=== PATIENT | female | born 1980 | race Caucasian/White ===

== ENCOUNTER 2021-07-16 08:14 | Outpatient (REF) | payer BC, SELFPAY ==
--- NOTE | ~2021-07-16 | MM_ITS ---
EXAMINATION: MM SCREENING DIGITAL BREAST TOMOSYNTHESIS, BILATERAL CLINICAL INFORMATION: Screening. Asymptomatic. The lifetime risk of breast cancer based on the Tyrer-Cuzick Model is 11.4%. COMPARISON: Mammography: July 12, 2020 and studies dating back to January 20, 2019 TECHNIQUE: Digital breast tomosynthesis is performed in both the craniocaudal and mediolateral oblique views along with computer-aided detection (CAD). Synthesized 2D images are generated from the tomosynthesis. FINDINGS: There are scattered areas of fibroglandular density (ACR BI-RADS breast composition Category b). There are no significant masses, abnormal calcifications, or other abnormalities. MM/MM tomosynthesis screening BI IMPRESSION: There are no significant changes from prior study. ASSESSMENT: BI-RADS 1: Negative RECOMMENDATION: Routine annual mammography screening. This patient's information was entered into a reminder system with a target due date for their next mammogram.
== END 2021-07-16 08:15 | disposition home or self-care (01) ==
LOC: HO.MAMMO 08:14
PROVIDERS: PCP Nurse Practitioner Family; Visit Provider Nurse Practitioner Family
DX: Z12.31 Encounter for screening mammogram for malignant neoplasm of breast (principal)
CPT/HCPCS: 77063; 77067

== ENCOUNTER 2022-03-08 09:04 | Outpatient (REF) | payer BC, SELFPAY ==
[2022-03-08 09:30] LABS: MANUAL DIFF FLAG NO
[2022-03-08 09:38] LABS: Basophils Percent Auto 0.3 % (0-2); Eosinophils Absolute Auto 0.1 X10*3/uL (0.0-0.4); Eosinophils Percent Auto 2.3 % (0-4); Hematocrit 38.1 % (37.0-47.0); Hemoglobin 13.1 g/dl (12.0-16.0); Imm Gran Abs Auto 0.01 X10*3/uL (0.00-0.03); Imm Gran Pct Auto 0.2 % (0.0-0.4); Lymphocytes Absolute Auto 2.7 X10*3/uL (1.2-4.9); Lymphocytes Percent Auto 44.1 % (20-40); Mean Corpuscular HGB Conc 34.4 g/dl (31.0-35.0); Mean Corpuscular Hemoglobin 29.8 pg (27.0-33.0); Mean Corpuscular Volume 86.8 fL (80.0-98.0); Mean Platelet Volume 10.5 fL (9.4-12.3); Monocytes Absolute Auto 0.4 X10*3/uL (0.1-1.2); Monocytes Percent Auto 7.1 % (2-11); Neutrophils Absolute Auto 2.8 x10*3/uL (2.0-8.3); Platelet Count 240 X10*3/uL (160-400); Red Blood Count 4.39 X10*6/uL (4.20-5.50); Red Cell Distribution Width 12.1 % (11.0-16.0); White Blood Count 6.2 X10*3/uL (4.8-10.8)
[2022-03-08 10:02] LABS: Alanine Aminotransferase 22 U/L (0-31); Albumin Level 4.3 g/dL (3.5-5.0); Alkaline Phosphatase 64 U/L (39-117); Anion Gap 12 (12-20); Aspartate Amino Transferase 14 U/L (5-31); Blood Urea Nitrogen 15 mg/dL (9-16); Calcium 9.8 mg/dL (8.4-10.2); Carbon Dioxide 27 mmol/L (22-29); Chloride 105 mmol/L (96-108); Cholesterol 178 mg/dL; Estimated Glomerular Filt Rate > 60; Glucose Fasting 117 mg/dL (60-99); HDL Cholesterol 51 mg/dL; LDL Cholesterol Calculated 97 mg/dl; Potassium 4.1 mmol/L (3.3-5.1); Sodium 140 mmol/L (135-145); Total Protein 6.8 g/dL (6.5-8.0); Triglycerides 154 mg/dL
[2022-03-08 10:28] LABS: TSH reflex Free T4 1.64 uIU/mL (0.32-4.0)
[2022-03-08 11:11] LABS: Appearance Urine CLEAR; Color Urine YELLOW; Glucose Urine UA NEG (NEG); Leukocyte Esterase Urine NEG (NEG); Nitrite Urine NEG (NEG); PH 5.5 (5.0-8.0); Specific Gravity - Urine 1.025 (1.005-1.025); Urine Blood NEG (NEG); Urine Ketones NEG (NEG); Urine Protein NEG (NEG-TRACE)
== END 2022-03-08 09:05 | disposition home or self-care (01) ==
LOC: HO.LAB 09:04
PROVIDERS: PCP Nurse Practitioner Family; Visit Provider Nurse Practitioner Family
DX: Z00.00 Encounter for general adult medical examination without abnormal findings (principal)
CPT/HCPCS: 36415; 80053; 80061; 81003; 84443; 85025

== ENCOUNTER 2022-07-18 09:26 | Outpatient (REF) | payer BC, SELFPAY ==
--- NOTE | ~2022-07-18 | MM_ITS ---
EXAMINATION: MM SCREENING DIGITAL BREAST TOMOSYNTHESIS, BILATERAL CLINICAL INFORMATION: Screening. Asymptomatic. The lifetime risk of breast cancer based on the Tyrer-Cuzick Model is 11%. COMPARISON: Mammography: 07/16/2021, 07/12/2020, 01/20/2019 TECHNIQUE: Digital breast tomosynthesis is performed in both the craniocaudal and mediolateral oblique views along with computer-aided detection (CAD). Synthesized 2D images are generated from the tomosynthesis. FINDINGS: There are scattered areas of fibroglandular density (ACR BI-RADS breast composition Category b). Parenchymal pattern is similar to prior studies. There are scattered bilateral stable asymmetries similar to prior exams. No developing density or interval mass or architectural abnormality. No abnormal calcifications. The axilla and skin contours are unremarkable. MM/MM tomosynthesis screening BI IMPRESSION: No mammographic evidence of malignancy. ASSESSMENT: BI-RADS 2: Benign RECOMMENDATION: Routine annual mammography screening. This patient's information was entered into a reminder system with a target due date for their next mammogram.
== END 2022-07-18 09:27 | disposition home or self-care (01) ==
LOC: HO.MAMMO 09:26
PROVIDERS: PCP Nurse Practitioner Family; Visit Provider Nurse Practitioner Family
DX: Z12.31 Encounter for screening mammogram for malignant neoplasm of breast (principal)
CPT/HCPCS: 77063; 77067

== ENCOUNTER 2022-11-06 13:25 | Outpatient (REF) | payer BC, SELFPAY ==
[2022-11-12 16:29] LABS: HPV mRNA E6/E7 rflx Not Detected (Not Detected)
== END 2022-11-06 13:26 | disposition home or self-care (01) ==
LOC: HO.LNP 13:25
PROVIDERS: PCP Nurse Practitioner Family; Visit Provider Advanced Practice Midwife
DX: Z01.419 Encounter for gynecological examination (general) (routine) without abnormal findings (principal); Z11.51 Encounter for screening for human papillomavirus (HPV)
CPT/HCPCS: 87624; 88142

== ENCOUNTER 2022-12-27 11:27 | Outpatient (REF) | payer BC, SELFPAY ==
[2022-12-27 13:59] LABS: MANUAL DIFF FLAG NO
[2022-12-27 14:14] LABS: Appearance Urine Clear; Color Urine Yellow; Glucose Urine UA Negative (Negative); Leukocyte Esterase Urine Negative (Negative); Nitrite Urine Negative (Negative); Specific Gravity - Urine 1.025 (1.005-1.025); Urine Blood Negative (Negative); Urine Ketones Negative (Negative); Urine Protein Negative (Neg-Trace)
[2022-12-27 14:42] LABS: Basophils Percent Auto 0.3 % (0-2); Eosinophils Absolute Auto 0.1 X10*3/uL (0.0-0.4); Eosinophils Percent Auto 1.4 % (0-4); Hematocrit 39.1 % (37.0-47.0); Hemoglobin 13.2 g/dl (12.0-16.0); Imm Gran Abs Auto 0.04 X10*3/uL (0.00-0.03); Imm Gran Pct Auto 0.6 % (0.0-0.4); Lymphocytes Absolute Auto 2.4 X10*3/uL (1.2-4.9); Lymphocytes Percent Auto 35.8 % (20-40); Mean Corpuscular HGB Conc 33.8 g/dl (31.0-35.0); Mean Corpuscular Hemoglobin 30.6 pg (27.0-33.0); Mean Corpuscular Volume 90.5 fL (80.0-98.0); Mean Platelet Volume 11.1 fL (9.4-12.3); Monocytes Absolute Auto 0.4 X10*3/uL (0.1-1.2); Monocytes Percent Auto 5.4 % (2-11); Neutrophils Absolute Auto 3.8 x10*3/uL (2.0-8.3); Neutrophils Percent Auto 56.5 % (45-73); Platelet Count 231 X10*3/uL (160-400); Red Blood Count 4.32 X10*6/uL (4.20-5.50); Red Cell Distribution Width 12.5 % (11.0-16.0); White Blood Count 6.7 X10*3/uL (4.8-10.8)
[2022-12-27 15:10] LABS: Alanine Aminotransferase 24 U/L (0-31); Albumin Level 4.3 g/dL (3.5-5.0); Alkaline Phosphatase 67 U/L (39-117); Anion Gap 13 (12-20); Aspartate Amino Transferase 16 U/L (5-31); Blood Urea Nitrogen 13 mg/dL (9-16); Calcium 9.3 mg/dL (8.4-10.2); Carbon Dioxide 26 mmol/L (22-29); Chloride 105 mmol/L (96-108); Cholesterol 192 mg/dL; Estimated Glomerular Filt Rate > 60; Glucose Fasting 106 mg/dL (60-99); HDL Cholesterol 56 mg/dL; LDL Cholesterol Calculated 112 mg/dl; Potassium 4.4 mmol/L (3.3-5.1); Sodium 140 mmol/L (135-145); Total Protein 6.6 g/dL (6.5-8.0); Triglycerides 122 mg/dL
== END 2022-12-27 11:28 | disposition home or self-care (01) ==
LOC: HO.10HDL 11:27
PROVIDERS: Visit Provider Nurse Practitioner Family
DX: Z00.00 Encounter for general adult medical examination without abnormal findings (principal); Z20.2 Contact with and (suspected) exposure to infections with a predominantly sexual mode of transmission
CPT/HCPCS: 36415; 80053; 80061; 81003; 84443; 85025

== ENCOUNTER 2023-07-15 07:31 | Outpatient (AMB) | payer BC, SELFPAY ==
--- NOTE | 2023-07-15 07:36 | MHC.PC.OV ---
Vital Signs 07/15/23 07:37 Height 5 ft 2 in Weight 250 lb 8 oz BMI 45.8 BP 100/72 Blood Pressure Location Rt brachial Position Sitting Pulse 74 Pulse Source Pulse Oximeter Pulse Oximetry (%) 98 Oxygen Delivery Method Room Air Intake Visit Reasons: Abdominal aortic aneurysm Allergies Sulfa (Sulfonamide Antibiotics) Allergy (Unknown, Verified 07/15/23 08:08) facial edema oxycodone [OXYCODONE] Adverse Reaction (Intermediate, Verified 07/15/23 08:08) VOMITTING Medication List - Last Reconciled 07/15/23 by MIKI Musa atorvastatin 20 mg PO DAILY mupirocin 2% 1 appl topical BID 30 days nicotine 1 patch transdermal Q24H 30 days ropinirole 0.25 mg PO BEDTIME 90 days Tobacco use date assessed: 07/15/23 Dental Screening Dental Screen Date: 07/15/23 Did you have a dental visit in the last 12 months?: Yes Did you have a dental problem in the last 6 months where you did not have access to dental care?: No Was dental information given to patient?: Patient has dentist HPI Abdominal aortic aneurysm HPI Details Pt is here for a PE. Will order labs. 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 Mammo is scheduled. Due for colon screen in the near future, will refer to GI. [facility] Medical History (Updated 07/15/23 @ 07:48 by MIKI Musa) Sleep apnea in adult Sleep apnea CPAP (continuous positive airway pressure) dependence Surgical History Hx of hysterectomy Social History Housing: House Patient Tobacco Use Status: Current everyday Tobacco user Cigarettes Per Day: 5 e-Cigarette/Vaping Use: Never Used Second Hand Smoke Exposure: No service: No Current occupational status: employed Current occupation: [employer] Current occupational exposures/hazards: No Cognitive needs: No Hearing needs: No Vision needs: No Female Reproductive History Menstrual Age of Menarche: 9 Questionnaire Thrive Questionnaire Date Thrive assessed: 06/06/22 GEORGES-7 AMB Questionnaire GEORGES-7 Date GEORGES - 7 assessed: 06/06/22 Source: Developed by Drs. Ang LLis Klein, Dylan Ibarra and colleagues, with an educational yadira from [employer]. Review of Systems Const Denies chills and Denies fever(s) Eyes Denies blurry vision ENT Denies vertigo, Denies dizziness and Denies sore throat Card Denies chest pain at rest, Denies chest pain with activity, Denies diaphoresis, Denies dyspnea and Denies dyspnea on exertion Resp Denies cough, Denies dyspnea, Denies dyspnea on exertion and Denies wheezing GI Denies abdominal pain, Denies melena, Denies hematochezia, Denies constipation, Denies diarrhea and Denies loose stools Denies hematuria Musc Denies numbness and Denies tingling Skin/Breast Denies lesions Neuro Denies vertigo, Denies dizziness, Denies numbness and Denies tingling Psych Denies anxiety, Denies depression, Denies homicidal ideation, Denies suicidal ideation and Denies other (substance abuse) Aller/Immun Denies wheezing Physical exam (Primary Care) Vital Signs: Last Vital Signs Pulse 74 07/15/23 07:37 BP 100/72 07/15/23 07:37 Pulse Ox 98 07/15/23 07:37 Oxygen Delivery Method Room Air 07/15/23 07:37 BMI result Body Mass Index 45.8 Tobacco/Smoking Status: Tobacco use Status Tobacco use date assessed 07/15/23 07/15/23 07:42 Patient Tobacco Use Status Current everyday Tobacco 07/15/23 07:42 e-Cigarette/Vaping Use Never Used 07/15/23 07:42 Thrive Assessment: Date of Thrive Assessment Date Thrive assessed 06/06/22 07/15/23 07:42 Const General: cooperative Nutritional Appearance: obese morbidly obese Orientation/consciousness: patient oriented x3 HENMT Head: Yes normal to inspection, Yes normocephalic and Yes atraumatic Ears: TM's normal bilaterally Eyes General: appearance normal, both eyes and all related structures Alignment and Position: alignment normal and position normal Neck Neck: Yes normal visual inspection and Yes no lymphadenopathy Thyroid: Thyroid normal Resp Effort & Inspection: normal respiratory effort Auscultation: clear to auscultation bilaterally Cardio Rate: regular rate Rhythm: regular rhythm Heart sounds: S1 normal heart sound present, S2 normal heart sound present and no murmurs GI Palpation (GI): Soft to palpation and nontender Auscultation: normal bowel sounds Skin Rashes: no rashes Neuro General: patient oriented x3, moves all extremities, no focal motor deficits and deep tendon reflexes 2+ bilaterally Romberg Test: Negative Psych Appearance: grossly normal Mental Status: mental status grossly normal Speech and movement: Normal speech and movement present Affect: normal affect Attitude: cooperative Thought process: Normal thought process present Thought content: Normal thought content present Insight: Good insight present (Psych) Judgement: Good judgement present (Psych) Assessment and Plan Assessment & Plan (1) Physical exam: Code(s): Z00.00 - Encounter for general adult medical examination without abnormal findings Plan: Labs ordered (2) Screening for colon cancer: Code(s): Z12.11 - Encounter for screening for malignant neoplasm of colon Plan: Referred to GI Plan The patient agreed to the use of a medical radiation tech for this encounter. Scribed for MIKI Spangler by Kati Cha medical radiation tech, on 07/15/2023 at 07:45 EST. Orders: Orders TSH reflex Free T4 Today Z00.00 - Encounter for general adult medical examination without abnormal findings Lipid Panel Today Z00.00 - Encounter for general adult medical examination without abnormal findings Complete Blood Count Auto Diff Today Z00.00 - Encounter for general adult medical examination without abnormal findings Comprehensive Sublette. Panel Fast Today Z00.00 - Encounter for general adult medical examination without abnormal findings UA CC w/rflx Micro + Cult Today Z00.00 - Encounter for general adult medical examination without abnormal findings Referrals Gastroenterology Referral Z12.11 - Encounter for screening for malignant neoplasm of colon Coding Level of Care Code Est Pt Prev Care 40-64y(27310) Diagnoses Physical exam Z00.00 Screening for colon cancer Z12.11
[2023-07-15 07:37] VITALS: BP 100/72; PULSE 74; O2SAT 98; BMI 45.8
== END 2023-07-15 09:06 | disposition home or self-care (01) ==
PROVIDERS: Visit Provider Nurse Practitioner Family
DX: Z00.00 Encounter for general adult medical examination without abnormal findings (principal); Z12.11 Encounter for screening for malignant neoplasm of colon
CPT/HCPCS: 99396

== ENCOUNTER 2023-07-24 09:08 | Outpatient (REF) | payer BC, SELFPAY ==
--- NOTE | ~2023-07-24 | MM_ITS ---
EXAMINATION: MM SCREENING DIGITAL BREAST TOMOSYNTHESIS, BILATERAL CLINICAL INFORMATION: Screening. Asymptomatic. COMPARISON: Mammography: 07/18/2022, 07/16/2021, 07/12/2020, 01/20/2019 TECHNIQUE: Digital breast tomosynthesis is performed in both the craniocaudal and mediolateral oblique views along with computer-aided detection (CAD). Synthesized 2D images are generated from the tomosynthesis. FINDINGS: There are scattered areas of fibroglandular density (ACR BI-RADS breast composition Category b). There are no suspicious masses, suspicious grouped calcifications, or areas of architectural distortion in either breast. The parenchymal pattern is stable from prior exams. There are scattered bilateral stable and completely unchanged asymmetries similar to prior exams. MM/MM tomosynthesis screening BI IMPRESSION: No mammographic evidence of malignancy. Stable benign findings. ASSESSMENT: BI-RADS BI-RADS 2 - Benign Findings RECOMMENDATION: Routine annual mammography screening. 1 year F/U This examination should not preclude the clinical evaluation of a suspicious palpable abnormality. This patient's information was entered into a reminder system with a target due date for their next mammogram.
== END 2023-07-24 09:09 | disposition home or self-care (01) ==
LOC: HO.MAMMO 09:08
PROVIDERS: PCP Nurse Practitioner Family; Visit Provider Nurse Practitioner Family
DX: Z12.31 Encounter for screening mammogram for malignant neoplasm of breast (principal)
CPT/HCPCS: 77063; 77067

== ENCOUNTER → 2023-07-24 09:15 | Outpatient (BNV) | payer BC, SELFPAY | PROVIDERS: PCP Nurse Practitioner Family; Visit Provider Radiology Diagnostic Radiology | DX: Z12.31 Encounter for screening mammogram for malignant neoplasm of breast (principal) | CPT/HCPCS: 77063; 77067 ==

== ENCOUNTER → 2023-08-26 12:57 | Outpatient (BNVA) | payer BC, SELFPAY | PROVIDERS: PCP Nurse Practitioner Family; Visit Provider Physician Assistant ==

== ENCOUNTER 2023-08-26 12:58 | Outpatient (AMB) | payer BC, SELFPAY ==
[2023-08-26 12:58] VITALS: BP 119/75; PULSE 70; BMI 44.8
--- NOTE | 2023-08-26 12:58 | MHC.OFFVIS ---
Intake Vital Signs 08/26/23 12:58 Height 5 ft 2 in Weight 244 lb 11.41 oz BMI 44.8 BP 119/75 Blood Pressure Location Lt brachial Position Sitting Pulse 70 Intake Visit Reasons: Colonoscopy Screening Intake Note: Deann presents in the office as a colonoscopy screening. CC: She is just due for a colonoscopy - no other concerns. Allergies Sulfa (Sulfonamide Antibiotics) Allergy (Unknown, Verified 08/26/23 13:01) facial edema oxycodone [OXYCODONE] Adverse Reaction (Intermediate, Verified 08/26/23 13:01) VOMITTING Medication List - Last Reconciled 08/26/23 by Gracia Beard PA-C atorvastatin 20 mg PO DAILY mupirocin 2% 1 appl topical BID 30 days nicotine 1 patch transdermal Q24H 30 days ropinirole 0.25 mg PO BEDTIME 90 days HPI HPI Comments History of Present Illness Details A 43 y/o-female referred for index screening colonoscopy. 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- Bowels are normal Appetite is good-: She has attempted some weight loss however it was difficult for her and is interested in returning to weight management She has no respiratory or cardiac issues Sleep apnea-unclear No nausea, vomiting, hematemesis, hematochezia fever chills PFSH Medical History Sleep apnea in adult Sleep apnea CPAP (continuous positive airway pressure) dependence Surgical History Hx of hysterectomy Family History Maternal Aunt Colon cancer Social History Housing: House Patient Tobacco Use Status: Current everyday Tobacco user Cigarettes Per Day: 5 e-Cigarette/Vaping Use: Never Used Second Hand Smoke Exposure: No service: No Current occupational status: employed Current occupation: [employer] Current occupational exposures/hazards: No Cognitive needs: No Hearing needs: No Vision needs: No Female Reproductive History Menstrual Age of Menarche: 9 Review of Systems Const All systems reviewed & are unremarkable except as noted in HPI and below Denies chills, Denies fatigue and Denies fever(s) Card Denies chest pain GI Denies abdominal pain, Denies hematochezia, Denies heartburn, Denies diarrhea and Denies nausea Endo Denies fatigue Physical Exam Vital Signs: Last Vital Signs Pulse 70 08/26/23 12:58 BP 119/75 08/26/23 12:58 BMI result Body Mass Index 44.8 Const General: cooperative, healthy appearing, comfortable and no acute distress Orientation/consciousness: patient oriented x3 Limitations: no limitations Resp Effort & Inspection: normal respiratory effort and able to speak in complete sentences Auscultation: clear to auscultation bilaterally, no rales, no rhonchi and no wheezes Cardio Rate: regular rate Rhythm: regular rhythm Heart sounds: S1 normal heart sound present and S2 normal heart sound present GI Palpation (GI): Soft to palpation and nontender Auscultation: normal bowel sounds Skin General skin exam: no rashes or lesions noted Neuro General: patient oriented x3 Psych Appearance: grossly normal and well kempt Mental Status: mental status grossly normal Speech and movement: Normal speech and movement present and Clear speech present Affect: normal affect Thought process: Normal thought process present Thought content: Normal thought content present Insight: Good insight present (Psych) Judgement: Good judgement present (Psych) Assessment & Plan Assessment & Plan (1) Screening for colon cancer: Code(s): Z12.11 - Encounter for screening for malignant neoplasm of colon Plan: Index screening colonoscopy Plan Index screening colonoscopy anesthesia consult MATTY MiraLax Gatorade prep Refer to weight management-Mr. Ye Orders: Orders Colonoscopy - GI Use Only 08/26/23 Z12.11 - Encounter for screening for malignant neoplasm of colon Referrals Bariatric Surgery Referral E66.01 - Morbid (severe) obesity due to excess calories Medications: New bisacodyl (Dulcolax (bisacodyl)) Day before procedure, prep day Take 4 tablets by mouth upon awakening followed by large glass of water 20 mg (4 x 5 mg) PO ONCE 1 day 4 tabs 0RF colonoscopy prep Z12.11 - Encounter for screening for malignant neoplasm of colon polyethylene glycol 3350 (Miralax) Take as directed by mouth the day before your procedure. 238 grams PO ONCE 1 day PRN 238 grams 0RF laxative effect Patient Instructions: Index screening colonoscopy anesthesia consult MATTY MiraLax Gatorade prep Refer to weight management He encouraged to call with questions or concerns Appreciate the opportunity assist in care as pleasant patient Coding Level of Care Code New Pt Level 3 (20451) Diagnoses Screening for colon cancer Z12.11 Time Spent (min) 35
== END 2023-08-26 13:41 | disposition home or self-care (01) ==
PROVIDERS: PCP Nurse Practitioner Family; Visit Provider Physician Assistant
DX: Z01.818 Encounter for other preprocedural examination (principal); Z12.11 Encounter for screening for malignant neoplasm of colon
CPT/HCPCS: S0285

== ENCOUNTER 2024-03-31 08:24 | Outpatient (REF) | payer BC, SELFPAY ==
[2024-03-31 10:30] LABS: MANUAL DIFF FLAG NO
[2024-03-31 10:41] LABS: Appearance Urine Clear; Color Urine Yellow; Glucose Urine UA Negative (Negative); Leukocyte Esterase Urine Negative (Negative); Nitrite Urine Negative (Negative); PH 5.5 (5.0-9.0); Urine Blood Negative (Negative); Urine Ketones Negative (Negative); Urine Protein Negative (Neg-Trace)
[2024-03-31 10:43] LABS: Basophils Percent Auto 0.5 % (0-2); Eosinophils Absolute Auto 0.2 X10*3/uL (0.0-0.4); Eosinophils Percent Auto 2.6 % (0-4); Hematocrit 39.5 % (37.0-47.0); Hemoglobin 13.6 g/dl (12.0-16.0); Imm Gran Abs Auto 0.02 X10*3/uL (0.00-0.03); Imm Gran Pct Auto 0.3 % (0.0-0.4); Mean Corpuscular HGB Conc 34.4 g/dl (31.0-35.0); Mean Corpuscular Hemoglobin 30.4 pg (27.0-33.0); Mean Corpuscular Volume 88.4 fL (80.0-98.0); Mean Platelet Volume 10.5 fL (9.4-12.3); Monocytes Absolute Auto 0.4 X10*3/uL (0.1-1.2); Monocytes Percent Auto 6.4 % (2-11); Neutrophils Absolute Auto 2.6 x10*3/uL (2.0-8.3); Neutrophils Percent Auto 41.2 % (45-73); Platelet Count 216 X10*3/uL (160-400); Red Blood Count 4.47 X10*6/uL (4.20-5.50); Red Cell Distribution Width 12.4 % (11.0-16.0); White Blood Count 6.2 X10*3/uL (4.8-10.8)
[2024-03-31 10:55] LABS: Alanine Aminotransferase 32 U/L (0-31); Albumin Level 4.6 g/dL (3.5-5.0); Alkaline Phosphatase 73 U/L (39-117); Anion Gap 13 (12-20); Aspartate Amino Transferase 18 U/L (5-31); Bilirubin Total 1.1 mg/dL (0.0-1.0); Blood Urea Nitrogen 18 mg/dL (9-16); Calcium 10.1 mg/dL (8.4-10.2); Carbon Dioxide 27 mmol/L (22-29); Chloride 104 mmol/L (96-108); Cholesterol 188 mg/dL (<200); Estimated Glomerular Filt Rate > 60; Glucose Fasting 118 mg/dL (60-99); HDL Cholesterol 58 mg/dL (>40); LDL Cholesterol Calculated 90 mg/dL (<100); Potassium 3.9 mmol/L (3.3-5.1); Sodium 140 mmol/L (135-145); Total Protein 7.3 g/dL (6.5-8.0); Triglycerides 203 mg/dL (<150)
[2024-03-31 11:15] LABS: TSH reflex Free T4 2.56 uIU/mL (0.32-4.0)
== END 2024-03-31 08:25 | disposition home or self-care (01) ==
LOC: HO.10HDL 08:24
PROVIDERS: Visit Provider Nurse Practitioner Family
DX: Z00.00 Encounter for general adult medical examination without abnormal findings (principal)
CPT/HCPCS: 36415; 80053; 80061; 81003; 84443; 85025

== ENCOUNTER 2024-04-08 11:17 | Outpatient (AMB) | payer BC, SELFPAY ==
--- NOTE | 2024-04-08 11:19 | A.OFFPC_ITS ---
Vital Signs 04/08/24 11:21 Height 5 ft 2 in Weight 246 lb BMI 45.0 BP 120/82 Blood Pressure Location Lt brachial Position Sitting Pulse 84 Pulse Source Pulse Oximeter Pulse Oximetry (%) 97 Oxygen Delivery Method Room Air Intake Visit Reasons: weight loss options Intake Note: Patient here to discuss weight loss options. Allergies Sulfa (Sulfonamide Antibiotics) Allergy (Unknown, Verified 04/08/24 12:17) facial edema oxycodone [OXYCODONE] Adverse Reaction (Intermediate, Verified 04/08/24 12:17) VOMITTING Medication List - Last Reconciled 04/08/24 by MIKI Musa atorvastatin 20 mg PO DAILY bisacodyl (Dulcolax (bisacodyl)) 20 mg (4 x 5 mg) PO ONCE 1 day mupirocin 2% 1 appl topical BID 30 days nicotine 1 patch transdermal Q24H 30 days polyethylene glycol 3350 (Miralax) 238 grams PO ONCE PRN 1 day ropinirole 0.25 mg PO BEDTIME 90 days semaglutide (weight loss) (Wegovy) 0.25 mg (0.5 mL) subcut QWEEK 30 days Tobacco use date assessed: 04/08/24 Dental Screening Dental Screen Date: 04/08/24 Did you have a dental visit in the last 12 months?: Yes Did you have a dental problem in the last 6 months where you did not have access to dental care?: No Was dental information given to patient?: Patient has dentist HPI weight loss options HPI Details Pt is interested in weight loss. She has been trying to work on her diet but is struggling with this. Pt's fasting blood sugar was elevated. 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 Will also start wegovy. Denies fever, chills, and dizziness. [facility] Medical History Sleep apnea in adult Sleep apnea CPAP (continuous positive airway pressure) dependence Surgical History Hx of hysterectomy Family History Maternal Aunt Colon cancer Social History (Reviewed 06/13/24 @ 12:19 by Mook Morel [facility] Patient Tobacco Use Status: Current everyday Tobacco user Cigarettes Per Day: 5 e-Cigarette/Vaping Use: Never Used Second Hand Smoke Exposure: No service: No Current occupational status: employed Current occupation: [employer] Current occupational exposures/hazards: No Cognitive needs: No Hearing needs: No Vision needs: No Female Reproductive History Menstrual Age of Menarche: 9 Questionnaire PHQ-9 Over the last 2 weeks, how often have you been bothered by any of the following problems? 74354 - PHQ-9 Billing: Patient declined-do not bill Source: Developed by Drs. Ang Haley, Lis Pichardo, Dylan Ibarra and colleagues, with an educational yadira from [employer]. Thrive Questionnaire Date Thrive assessed: 04/08/24 What is your living situation today?: I choose not to answer this question Within the past 12 months, did the food you bought not last and you didn't have the money to get more?: I choose not to answer this question Within the past 12 months, did you worry whether your food would run out before you got money to buy more?: I choose not to answer this question Do you have trouble paying for medicines?: I choose not to answer this question Do you have trouble getting transportation to medical appointments?: I choose not to answer this question Do you have trouble paying your heating and electricity bill?: I choose not to answer this question Do you have trouble taking care of your child, family member or friend?: I choose not to answer this question Do you have trouble with day-to-day activities such as bathing, preparing meals, shopping, managing finances, etc.?: I choose not to answer this question Are you currently unemployed and looking for a job?: I choose not to answer this question Are you interested in more education?: I choose not to answer this question Currently or been in a relationship where the following occur: I choose not to answer this question THRIVE Score: 0 AUDIT C Alcohol Use Questionnaire (AUDIT-C) 1. How often do you have a drink containing alcohol?: 2-3 times a week 2. How many drinks containing alcohol do you have on a typical day when you are drinking?: 1 or 2 3. How often do you have six or more drinks on one occasion?: Never Total Score: 3 Score Reviewed/Action Taken: No GEORGES-7 AMB Questionnaire GEORGES-7 Date GEORGES - 7 assessed: 04/08/24 Source: Developed by Drs. Ang Haley, Lis Pichardo, Dylan Ibarra and colleagues, with an educational yadira from [employer]. GEORGES-7 Assessment Billing GEORGES-7 Assessment Tool: pt declined-do not bill Review of Systems Const Reports as per HPI Physical exam (Primary Care) Vital Signs: Last Vital Signs Pulse 84 04/08/24 11:21 BP 120/82 04/08/24 11:21 Pulse Ox 97 04/08/24 11:21 Oxygen Delivery Method Room Air 04/08/24 11:21 BMI result Body Mass Index 45.0 Tobacco/Smoking Status: Tobacco use Status Tobacco use date assessed 04/08/24 04/08/24 11:25 Patient Tobacco Use Status Current everyday Tobacco 04/08/24 11:19 e-Cigarette/Vaping Use Never Used 04/08/24 11:19 Thrive Assessment: Date of Thrive Assessment Date Thrive assessed 06/06/22 04/08/24 11:19 Currently or been in a relationship where the following occur: I choose not to answer this question Const General: cooperative Nutritional Appearance: obese morbidly obese Orientation/consciousness: patient oriented x3 Resp Effort & Inspection: normal respiratory effort Auscultation: clear to auscultation bilaterally Cardio Rate: regular rate Rhythm: regular rhythm Heart sounds: S1 normal heart sound present, S2 normal heart sound present and no murmurs Neuro General: patient oriented x3 Psych Appearance: grossly normal Mental Status: mental status grossly normal Speech and movement: Normal speech and movement present Affect: normal affect Attitude: cooperative Thought process: Normal thought process present Thought content: Normal thought content present Insight: Good insight present (Psych) Judgement: Good judgement present (Psych) Assessment and Plan Assessment & Plan (1) Obesity, morbid, BMI 40.0-49.9: Code(s): E66.01 - Morbid (severe) obesity due to excess calories Plan: referred to nutrition, starting wegovy (2) Elevated fasting blood sugar: Code(s): R73.01 - Impaired fasting glucose Plan: wegovy starting and referred to nutrition Plan The patient agreed to the use of a medical assistant per diem for this encounter. Scribed f or FABRICE Spangler-BC by Kati Cha medical assistant per diem, on 04/08/2024 at 11:30 EST. Orders: Referrals Nutrition/Dietitian Referral E66.01 - Morbid (severe) obesity due to excess calories, R73.01 - Impaired fasting glucose Medications: New semaglutide (weight loss) (Wegovtonya) administer weeks 1 through 4 of therapy 0.25 mg (0.5 mL) subcut QWEEK 2.5 mL 0RF 30 days Coding Level of Care Code Est Pt Level 3 (17237) Diagnoses Obesity, morbid, BMI 40.0-49.9 E66.01 Elevated fasting blood sugar R73.01
[2024-04-08 11:21] VITALS: BP 120/82; PULSE 84; O2SAT 97; BMI 45.0
== END 2024-04-08 11:48 | disposition home or self-care (01) ==
PROVIDERS: PCP Nurse Practitioner Family; Visit Provider Nurse Practitioner Family
DX: R73.01 Impaired fasting glucose (principal); E66.01 Morbid (severe) obesity due to excess calories; Z68.42 Body mass index [BMI] 45.0-49.9, adult
CPT/HCPCS: 99213

== ENCOUNTER 2024-04-09 08:49 | Outpatient (REF) | payer BC, SELFPAY ==
--- NOTE | ~2024-04-09 | US_ITS ---
EXAMINATION: US ABDOMEN COMPLETE CLINICAL INFORMATION: Abnormal levels of other serum enzymes. COMPARISON: None available. TECHNIQUE: Real-time imaging of the abdominal viscera. Limited visualization due to bowel gas. FINDINGS: PANCREAS: Limited visualization of pancreatic tail and head. Imaged portion of pancreatic body is unremarkable. ABDOMINAL AORTA: Limited visualization. INFERIOR VENA CAVA: Visualized portions are normal. LIVER: Increased hepatic parenchymal heterogeneity and echogenicity could be associated with hepatocellular disease/hepatic steatosis and substantially limits visualization. Correlation with liver function tests and clinical exam recommended to determine further management. GALLBLADDER: No gallstones. No gallbladder wall thickening. COMMON BILE DUCT: Normal in caliber measuring 0.3 cm in diameter. RIGHT KIDNEY: No hydronephrosis. No renal calculi. Limited visualization. The kidney measures 11.2 cm in maximum dimension. LEFT KIDNEY: No hydronephrosis. No renal calculi. Limited visualization. The kidney measures 12.5 cm in maximum dimension. SPLEEN: Normal. The spleen measures 11.4 cm in maximum dimension. FREE FLUID: None. US/US abdomen complete IMPRESSION: Increased hepatic parenchymal heterogeneity and echogenicity could be associated with hepatocellular disease/hepatic steatosis and substantially limits visualization. Correlation with liver function tests and clinical exam recommended to determine further management. This study was presented today May 03 2024 for interpretation. Stat results provided at this time as requested by referring provider.
== END 2024-04-09 08:50 | disposition home or self-care (01) ==
LOC: HO.US 08:49
PROVIDERS: PCP Nurse Practitioner Family; Visit Provider Nurse Practitioner Family
DX: R74.8 Abnormal levels of other serum enzymes (principal)
CPT/HCPCS: 76700

== ENCOUNTER 2024-04-12 09:10 | Outpatient (REF) | payer BC, SELFPAY ==
[2024-04-12 11:06] LABS: Estimated Average Glucose 117 mg/dL; HBS Num1 35.89 mIU/mL (0-7.99); HBc Num1 0.06 S/CO (0.00-0.79); Hemoglobin A1c % 5.7 % (<6.0); Hepatitis A Antibody IgM 0.11 Index (0-0.79); Hepatitis B Core Antibody Nonreactive (Nonreactive); Hepatitis B Surface Antigen Negative (Negative); ~HepC Num1 0.06 S/CO (0.00-0.79); ~Hepatitis A Antibody IgM Nonreactive (Nonreactive); ~Hepatitis B Surface Antibody REACTIVE (Nonreactive); ~Hepatitis C Antibody Nonreactive (Nonreactive)
== END 2024-04-12 09:11 | disposition home or self-care (01) ==
LOC: HO.10HDL 09:10
PROVIDERS: Visit Provider Nurse Practitioner Family
DX: R73.01 Impaired fasting glucose (principal); R74.8 Abnormal levels of other serum enzymes
CPT/HCPCS: 36415; 83036; 86704; 86706; 86709; 86803; 87340

== ENCOUNTER 2024-04-28 08:53 | Outpatient (AMB) | payer BC, SELFPAY ==
[2024-04-28 09:03] VITALS: BMI 45.0
--- NOTE | 2024-04-28 09:03 | A.OFFVIS_ITS ---
VS Expanded 04/28/24 09:03 04/29/24 21:50 Height 5 ft 2 in 5 ft 2 in Weight 246 lb 0.574 oz 246 lb BMI 45.0 45.0 Intake Visit Reasons: MORBID OBESITY/ CONFIRMED Allergies Sulfa (Sulfonamide Antibiotics) Allergy (Unknown, Verified 04/08/24 12:17) facial edema oxycodone [OXYCODONE] Adverse Reaction (Intermediate, Verified 04/08/24 12:17) VOMITTING Nutrition Presentation Details: P presents for MNT for elevated fasting blood glucose. Pt was referred by Adalberto Morel, PCP. Pt reports working from -11pm - 7am and sometimes schedule may change 11 am up - fruit/coffee 3-4 pm meal: pasta/chicken or fast food 3 pm: snacks /water or juice physical activity: walking at work smoking/etoh---- fruits/d: 0-1 ve serving/wk dairy: 3-4 serving/d prot: 10 oz/d BS Monitoring Most Recent Diabetes Results: Cholesterol 188 mg/dL (<200) 03/31/24 HDL Cholesterol 58 mg/dL (>40) 03/31/24 Triglycerides 203 mg/dL (<150) H 03/31/24 Creatinine 0.86 mg/dL (0.5-1.4) 03/31/24 Blood Urea Nitrogen 18 mg/dL (9-16) H 03/31/24 Sodium 140 mmol/L (135-145) 03/31/24 Potassium 3.9 mmol/L (3.3-5.1) 03/31/24 Chloride 104 mmol/L (96-108) 03/31/24 Carbon Dioxide 27 mmol/L (22-29) 03/31/24 Calcium 10.1 mg/dL (8.4-10.2) 03/31/24 AST 18 U/L (5-31) 03/31/24 ALT 32 U/L (0-31) H 03/31/24 Total Protein 7.3 g/dL (6.5-8.0) 03/31/24 Albumin 4.6 g/dL (3.5-5.0) 03/31/24 FXD-Qouaaiy-Po.Jeor Equation Height: 5 ft 2 in Weight: 246 lb Resting Metabolic Rate: 1716.57 Calculated Activity Level: Sedentary Calories Needed to Maintain Weight: 2059. Diagnosis Nutrition problem #1: food nutri know defi As related to (etiology) #1: diagnosis As evidenced by (sign/symptom) #1: knowledge deficit of diet [facility] Medical History Sleep apnea in adult Sleep apnea CPAP (continuous positive airway pressure) dependence Surgical History Hx of hysterectomy Family History Maternal Aunt Colon cancer Social History Housing: House Patient Tobacco Use Status: Current everyday Tobacco user Cigarettes Per Day: 5 e-Cigarette/Vaping Use: Never Used Second Hand Smoke Exposure: No service: No Current occupational status: employed Current occupation: [employer] Current occupational exposures/hazards: No Cognitive needs: No Hearing needs: No Vision needs: No Female Reproductive History Menstrual Age of Menarche: 9 Assessment & Plan Assessment & Plan (1) Elevated fasting blood sugar: Code(s): R73.01 - Impaired fasting glucose Category: Medical Plan: Wt: 111 Kg ( 04/2024 ) Est kcal needs as per MSJ: 2100 (40% carb, 30% protein/fat) Est fluid needs as per 25-30 ml/d: 3400 Est prot per day as per 1 g/kg bw: 111 Recommend fiber intake : 8-10 g per day and gradually increase to 25-28 g per day for women and 35-38 g for men or as tolerated Recommend sodium intake per day : less than 2000 mg Educated patient on: ( R = reviewed V = verbalizes understanding N/R = needs review N/A = not applicable * Food sources of carbohydrate, adequate serving sizes and its role in various health conditions: R V N/R * Differences between complex carbohydrates a simple carbohydrates, role of fiber in diet: R * Lean protein sources of foods: R V NR * Differences between types of fats and role in diet (mono on saturated fat fatty acids, saturated fatty acids, trans fats): R V N/R * Food sources of sodium in salt and healthy modifications for heart health in kidney health: R V R/V * Vitamins and minerals: R V N/R * Healthy plate method concept: R * Physical activity: Benefits a precaution: R * Dietary prevention of Hyperglycemia: R V R/V Patient Instructions: Have a meal replacement at work Work on reducing your total carb per day to less than 200 distributed throughout the day, choose complex carbs see meal ideas as reference Coding Level of Care Code Nutr Indiv Intake (48764) Diagnoses Elevated fasting blood sugar R73.01 Time Spent (min) 30
[2024-05-03 12:31] VITALS: BMI 45.0
== END 2024-04-28 09:42 | disposition home or self-care (01) ==
PROVIDERS: PCP Nurse Practitioner Family; Visit Provider Dietitian, Registered
DX: R73.01 Impaired fasting glucose (principal)

== ENCOUNTER → 2024-04-28 08:53 | Outpatient (BNVA) | payer BC, SELFPAY | PROVIDERS: PCP Nurse Practitioner Family; Visit Provider Dietitian, Registered | DX: R73.01 Impaired fasting glucose (principal); E66.01 Morbid (severe) obesity due to excess calories; Z68.42 Body mass index [BMI] 45.0-49.9, adult; Z71.3 Dietary counseling and surveillance | CPT/HCPCS: 97802 ==

== ENCOUNTER 2024-07-27 07:36 | Outpatient (AMB) | payer BC, SELFPAY ==
--- NOTE | 2024-07-27 07:40 | MHC.PC.OV ---
Vital Signs 07/27/24 07:43 Height 5 ft 2 in Weight 245 lb BMI 44.8 BP 120/82 Blood Pressure Location Lt brachial Position Sitting Pulse 75 Pulse Source Pulse Oximeter Pulse Oximetry (%) 97 Oxygen Delivery Method Room Air Intake Visit Reasons: Physical Allergies Sulfa (Sulfonamide Antibiotics) Allergy (Unknown, Verified 07/27/24 07:59) facial edema oxycodone [OXYCODONE] Adverse Reaction (Intermediate, Verified 07/27/24 07:59) VOMITTING Medication List - Last Reconciled 07/27/24 by MIKI Musa atorvastatin 20 mg PO DAILY bisacodyl (Dulcolax (bisacodyl)) 20 mg (4 x 5 mg) PO ONCE 1 day phentermine 15 mg PO DAILY polyethylene glycol 3350 (Miralax) 238 grams PO ONCE 1 day ropinirole 0.25 mg PO BEDTIME 90 days Tobacco use date assessed: 07/27/24 Dental Screening Dental Screen Date: 07/27/24 Did you have a dental visit in the last 12 months?: Yes Did you have a dental problem in the last 6 months where you did not have access to dental care?: No Was dental information given to patient?: Patient has dentist HPI HPI Comments History of Present Illness Details Pt is here for a PE. Will order labs. Colon screen is scheduled. Mammo is scheduled. 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 Will increase phentermine from 15mg to 30mg. PFSH Medical History Sleep apnea in adult Sleep apnea CPAP (continuous positive airway pressure) dependence Surgical History Hx of hysterectomy Family History Maternal Aunt Colon cancer Social History Housing: House Patient Tobacco Use Status: Current everyday Tobacco user Cigarettes Per Day: 5 e-Cigarette/Vaping Use: Never Used Second Hand Smoke Exposure: No service: No Current occupational status: employed Current occupation: [employer] Current occupational exposures/hazards: No Cognitive needs: No Hearing needs: No Vision needs: No Female Reproductive History Menstrual Age of Menarche: 9 Questionnaire PHQ-9 Over the last 2 weeks, how often have you been bothered by any of the following problems? 1. Little interest or pleasure in doing things: not at all 3. Trouble falling or staying asleep, or sleeping too much: not at all 4. Feeling tired or having little energy: not at all 5. Poor appetite or overeating: not at all 6. Feeling bad about yourself - or that you are a failure or have let yourself or your family down: not at all 7. Trouble concentrating on things, such as reading the newspaper or watching television: not at all 8. Moving or speaking so slowly that other people could have noticed. Or the opposite - being so fidgety or restless that you have been moving around a lot more than usual: not at all 9. Thoughts that you would be better off or of hurting yourself in some way: not at all Depression Screening Interpretation: Negative Depression Screening Done: Yes 29256 - PHQ-9 Billing: Yes Source: Developed by Drs. Ang Haley, Lis Pichardo, Dylan Ibarra and colleagues, with an educational yadira from [employer]. Thrive Questionnaire Date Thrive assessed: 07/27/24 I am a: Patient What is your living situation today?: I have a steady place to live Within the past 12 months, did the food you bought not last and you didn't have the money to get more?: I choose not to answer this question Within the past 12 months, did you worry whether your food would run out before you got money to buy more?: I choose not to answer this question Do you have trouble paying for medicines?: No Do you have trouble getting transportation to medical appointments?: No Do you have trouble paying your heating and electricity bill?: No Do you have trouble taking care of your child, family member or friend?: No Do you have trouble with day-to-day activities such as bathing, preparing meals, shopping, managing finances, etc.?: No Are you currently unemployed and looking for a job?: No Are you interested in more education?: No THRIVE Score: 0 AUDIT C Alcohol Use Questionnaire (AUDIT-C) 1. How often do you have a drink containing alcohol?: Monthly or less 2. How many drinks containing alcohol do you have on a typical day when you are drinking?: 1 or 2 3. How often do you have six or more drinks on one occasion?: Never Total Score: 1 GEORGES-7 AMB Questionnaire GEORGES-7 Date GEORGES - 7 assessed: 07/27/24 Feeling nervous, anxious, or on edge: 0 = Not at all Not being able to stop or control worryin = Not at all Worrying too much about different things: 0 = Not at all Trouble relaxin = Not at all Being so restless that it is hard to sit still: 0 = Not at all Becoming easily annoyed or irritable: 0 = Not at all Feeling afraid as if something awful might happen: 0 = Not at all Total GEORGES-7 score (0-4 normal; 5-9 mild; 10-14 moderate; 15-21 severe): 0 Source: Developed by Drs. Ang Haley, Lis Pichardo, Dylan Ibarra and colleagues, with an educational yadira from [employer]. GEORGES-7 Assessment Billing GEORGES-7 Assessment Tool: GEORGES-7 Assessment 32394 Review of Systems Const Denies chills and Denies fever(s) Eyes Denies blurry vision ENT Denies vertigo, Denies dizziness and Denies sore throat Card Denies chest pain at rest, Denies chest pain with activity, Denies diaphoresis, Denies dyspnea and Denies dyspnea on exertion Resp Denies cough, Denies dyspnea, Denies dyspnea on exertion and Denies wheezing GI Denies abdominal pain, Denies melena, Denies hematochezia, Denies constipation, Denies diarrhea and Denies loose stools Denies hematuria Musc Denies numbness and Denies tingling Skin/Breast Denies lesions Neuro Denies vertigo, Denies dizziness, Denies numbness and Denies tingling Psych Denies anxiety, Denies depression, Denies homicidal ideation, Denies suicidal ideation and Denies other (substance abuse) Aller/Immun Denies wheezing Physical exam (Primary Care) Vital Signs: Last Vital Signs Pulse 75 07/27/24 07:43 BP 120/82 07/27/24 07:43 Pulse Ox 97 07/27/24 07:43 Oxygen Delivery Method Room Air 07/27/24 07:43 BMI result Body Mass Index 44.8 Tobacco/Smoking Status: Tobacco use Status Tobacco use date assessed 07/27/24 07/27/24 07:47 Patient Tobacco Use Status Current everyday Tobacco 07/27/24 07:42 e-Cigarette/Vaping Use Never Used 07/27/24 07:42 Depression Screening Interpretation: Negative Thrive Assessment: Date of Thrive Assessment Date Thrive assessed 07/27/24 07/27/24 07:42 Const General: cooperative Nutritional Appearance: obese morbidly obese Orientation/consciousness: patient oriented x3 HENMT Head: Yes normal to inspection, Yes normocephalic and Yes atraumatic Ears: TM's normal bilaterally Eyes General: appearance normal, both eyes and all related structures Alignment and Position: alignment normal and position normal Neck Neck: Yes normal visual inspection, Yes no lymphadenopathy and Yes supple Resp Effort & Inspection: normal respiratory effort Auscultation: clear to auscultation bilaterally Cardio Rate: regular rate Rhythm: regular rhythm Heart sounds: S1 normal heart sound present, S2 normal heart sound present and no murmurs GI Palpation (GI): Soft to palpation and nontender Auscultation: normal bowel sounds Skin Rashes: no rashes Neuro General: patient oriented x3, moves all extremities, no focal motor deficits and deep tendon reflexes 2+ bilaterally Romberg Test: Negative Psych Appearance: grossly normal Mental Status: mental status grossly normal Speech and movement: Normal speech and movement present Affect: normal affect Attitude: cooperative Thought process: Normal thought process present Thought content: Normal thought content present Insight: Good insight present (Psych) Judgement: Good judgement present (Psych) Assessment and Plan Assessment & Plan (1) Physical exam: Code(s): Z00.00 - Encounter for general adult medical examination without abnormal findings Plan: Labs ordered (2) Obesity, morbid, BMI 40.0-49.9: Code(s): E66.01 - Morbid (severe) obesity due to excess calories Plan: increased phentermine Plan The patient agreed to the use of a medical doctor nuclear medicine for this encounter. Scribed for MIKI Spangler by Kati Cha medical doctor nuclear medicine, on 07/27/2024 at 07:55 EST. Orders: Orders Complete Blood Count Auto Diff Today Z00.00 - Encounter for general adult medical examination without abnormal findings Lipid Panel Today Z00.00 - Encounter for general adult medical examination without abnormal findings Comprehensive [place]. Panel Fast Today Z00.00 - Encounter for general adult medical examination without abnormal findings TSH reflex Free T4 Today Z00.00 - Encounter for general adult medical examination without abnormal findings UA CC w/rflx Micro + Cult Today Z00.00 - Encounter for general adult medical examination without abnormal findings Medications: Changed From phentermine must administer 2 hours after breakfast 15 mg PO DAILY 30 caps 1RF To phentermine must administer 2 hours after breakfast 30 mg PO DAILY 30 caps 2RF Coding Level of Care Code Est Pt Prev Care 40-64y(62525) Diagnoses Physical exam Z00.00 Obesity, morbid, BMI 40.0-49.9 E66.01 Additional Codes GEORGES-7 Assessment Billing - GEORGES-7 Assessment Tool: GEORGES-7 Assessment 11640 ([id number])
[2024-07-27 07:43] VITALS: BP 120/82; PULSE 75; O2SAT 97; BMI 44.8
== END 2024-07-27 08:58 | disposition home or self-care (01) ==
PROVIDERS: PCP Nurse Practitioner Family; Visit Provider Nurse Practitioner Family
DX: Z00.00 Encounter for general adult medical examination without abnormal findings (principal); E66.01 Morbid (severe) obesity due to excess calories; Z68.41 Body mass index [BMI] 40.0-44.9, adult

== ENCOUNTER → 2024-07-27 07:36 | Outpatient (BNVA) | payer BC, SELFPAY | PROVIDERS: PCP Nurse Practitioner Family; Visit Provider Nurse Practitioner Family | DX: Z00.00 Encounter for general adult medical examination without abnormal findings (principal); E66.01 Morbid (severe) obesity due to excess calories; Z68.41 Body mass index [BMI] 40.0-44.9, adult | CPT/HCPCS: 96127 ==

== ENCOUNTER 2024-07-29 09:28 | Outpatient (REF) | payer BC, SELFPAY ==
--- NOTE | ~2024-07-29 | MM_ITS ---
EXAMINATION: MM SCREENING DIGITAL BREAST TOMOSYNTHESIS, BILATERAL CLINICAL INFORMATION: Screening. Asymptomatic. COMPARISON: Mammography: Comparison is made with available priors TECHNIQUE: Digital breast mammography with tomosynthesis is performed in both the craniocaudal and mediolateral oblique views along with computer-aided detection (CAD). FINDINGS: There are scattered areas of fibroglandular density (ACR BI-RADS breast composition Category b). Left: Asymmetry lateral breast posterior depth on CC view. No suspicious calcifications or other abnormal findings. Right: Asymmetry medial breast anterior to middle depth on CC view. No suspicious calcifications or other abnormal findings. MM/MM tomosynthesis screening BI IMPRESSION: Additional imaging is recommended ASSESSMENT: BI-RADS BI-RADS 0 - Incomplete: Needs additional Imaging. RECOMMENDATION: 1. Additional views of the bilateral breasts 2. Targeted ultrasound if warranted after review of the additional views. 3. Radiology department staff will contact the patient for additional imaging. Additional Imaging required This examination should not preclude the clinical evaluation of a suspicious palpable abnormality. This patient's information was entered into a reminder system with a target due date for their next mammogram. Electronically signed by: Tari Ying DO 08/11/2024 11:58 AM EDT
== END 2024-07-29 09:29 | disposition home or self-care (01) ==
LOC: HO.MAMMO 09:28
PROVIDERS: PCP Nurse Practitioner Family; Visit Provider Nurse Practitioner Family
DX: Z12.31 Encounter for screening mammogram for malignant neoplasm of breast (principal)
CPT/HCPCS: 77063; 77067

== ENCOUNTER → 2024-07-29 09:30 | Outpatient (BNV) | payer BC, SELFPAY | PROVIDERS: PCP Nurse Practitioner Family; Visit Provider Internal Medicine | DX: Z12.31 Encounter for screening mammogram for malignant neoplasm of breast (principal) | CPT/HCPCS: 77063; 77067 ==

== ENCOUNTER 2024-08-06 08:22 | Outpatient (REF) | payer BC, SELFPAY ==
--- NOTE | ~2024-08-06 | US_ITS ---
EXAMINATION: US RETROPERITONEAL LIMITED (AORTA) CLINICAL INFORMATION: Abdominal aortic aneurysm screening. COMPARISON: None available. TECHNIQUE: Sainz-scale, color Doppler and spectral Doppler evaluation of the abdominal aorta. FINDINGS: Aorta is normal. The measurements of the aorta in maximum AP and transverse dimensions respectively are as follows: Proximal: 2.5 x 2.4 cm. Mid: 1.8 x 1.9 cm. Distal: 1.7 x 1.8 cm. PSV: 58 cm/s. The measurements of the common iliac arteries in maximum AP and TRV dimensions are as follows: Right Common Iliac Artery: 1.0 x 1.0 cm. Left Common Iliac Artery: 1.0 x 0.9 cm. US/US abdominal aortic aneurysm IMPRESSION: Normal evaluation. Electronically signed by: Doug Hardy MD 08/13/2024 09:56 AM EDT
== END 2024-08-06 08:23 | disposition home or self-care (01) ==
LOC: HO.US 08:22
PROVIDERS: PCP Nurse Practitioner Family; Visit Provider Nurse Practitioner Family
DX: Z82.49 Family history of ischemic heart disease and other diseases of the circulatory system (principal)
CPT/HCPCS: 76706

== ENCOUNTER 2024-09-29 09:28 | Outpatient (REF) | payer BC, SELFPAY ==
--- NOTE | ~2024-09-29 | MM_ITS ---
EXAMINATION: MM DIAGNOSTIC DIGITAL BREAST TOMOSYNTHESIS, BILATERAL Bilateral Limited ultrasound. CLINICAL INFORMATION: Call back from screening for bilateral asymmetries. COMPARISON: Mammography: Comparison is made with relevant prior exams. TECHNIQUE: Digital breast mammography with tomosynthesis is performed in both the craniocaudal and mediolateral oblique views along with computer-aided detection (CAD). Bilateral Limited ultrasound. FINDINGS: There are scattered areas of fibroglandular density (ACR BI-RADS breast composition Category b). Left: Asymmetry lateral left breast on CC view posterior depth is not significantly changed in comparison to priors dating back to 2020. Targeted color Doppler ultrasound scanning in the lateral left breast upper outer quadrant lower outer quadrant demonstrates normal fibroglandular breast tissue. No other suspicious calcifications or other abnormal findings. Right: Asymmetry medial breast middle depth on CC view persist on additional imaging projections. No suspicious calcifications or other abnormal findings. Targeted color Doppler ultrasound scanning in the medial right breast from 1-5 o'clock demonstrates normal fibroglandular breast tissue. There is no sonographic abnormality to account for the medial right breast asymmetry. Results are provided to the patient at time of visit by the technologist. MM/MM tomosynthesis added view BI IMPRESSION: Left: Asymmetry lateral left breast posterior depth is not significantly changed from prior mammograms dating back to 2020 without sonographic correlate. Benign. Right: Asymmetry medial right breast on CC view without sonographic correlate. Recommend 6 month follow-up right breast mammography for further evaluation of stability. ASSESSMENT: BI-RADS BI-RADS 3 - Probably benign finding(s) - 6 month follow-up suggested RECOMMENDATION: 1 year F/U (accession [id number]), 6 Month F/U (accession [id number]) This patient's information was entered into a reminder system with a target due date for their next mammogram. Electronically signed by: Tari Ying DO 09/29/2024 10:38 AM ERIKA
== END 2024-09-29 09:29 | disposition home or self-care (01) ==
LOC: HO.MAMMO 09:28
PROVIDERS: PCP Nurse Practitioner Family; Visit Provider Nurse Practitioner Family
DX: R92.323 Mammographic fibroglandular density, bilateral breasts (principal); N64.89 Other specified disorders of breast
CPT/HCPCS: 76642; 77062; 77066

== ENCOUNTER → 2024-09-29 09:30 | Outpatient (BNV) | payer BC, SELFPAY | PROVIDERS: PCP Nurse Practitioner Family; Visit Provider Internal Medicine | DX: Z12.31 Encounter for screening mammogram for malignant neoplasm of breast (principal) | CPT/HCPCS: 76642; 77062; 77066 ==

== ENCOUNTER 2024-10-06 07:57 | Outpatient (REF) | payer BC, SELFPAY ==
[2024-10-06 10:59] LABS: Appearance Urine Cloudy; Color Urine Yellow; Glucose Urine UA Negative (Negative); Leukocyte Esterase Urine Negative (Negative); Nitrite Urine Negative (Negative); PH 5.5 (5.0-9.0); Urine Blood Negative (Negative); Urine Ketones Negative (Negative); Urine Protein Negative (Neg-Trace)
[2024-10-06 11:05] LABS: MANUAL DIFF FLAG NO
[2024-10-06 11:10] LABS: Basophils Percent Auto 0.5 % (0-2); Eosinophils Absolute Auto 0.1 X10*3/uL (0.0-0.4); Eosinophils Percent Auto 1.9 % (0-4); Hematocrit 39.2 % (37.0-47.0); Hemoglobin 13.2 g/dl (12.0-16.0); Imm Gran Abs Auto 0.02 X10*3/uL (0.00-0.03); Imm Gran Pct Auto 0.3 % (0.0-0.4); Lymphocytes Percent Auto 46.8 % (20-40); Mean Corpuscular HGB Conc 33.7 g/dl (31.0-35.0); Mean Corpuscular Hemoglobin 30.1 pg (27.0-33.0); Mean Corpuscular Volume 89.3 fL (80.0-98.0); Mean Platelet Volume 10.6 fL (9.4-12.3); Monocytes Absolute Auto 0.4 X10*3/uL (0.1-1.2); Monocytes Percent Auto 5.7 % (2-11); Neutrophils Absolute Auto 2.9 x10*3/uL (2.0-8.3); Neutrophils Percent Auto 44.8 % (45-73); Platelet Count 264 X10*3/uL (160-400); Red Blood Count 4.39 X10*6/uL (4.20-5.50); Red Cell Distribution Width 12.4 % (11.0-16.0); White Blood Count 6.4 X10*3/uL (4.8-10.8)
[2024-10-06 11:41] LABS: Alanine Aminotransferase 36 U/L (0-31); Albumin Level 4.6 g/dL (3.5-5.0); Alkaline Phosphatase 75 U/L (39-117); Anion Gap 10 (12-20); Aspartate Amino Transferase 19 U/L (5-31); Bilirubin Total 1.1 mg/dL (0.0-1.0); Blood Urea Nitrogen 15 mg/dL (9-16); Calcium 10.4 mg/dL (8.4-10.2); Carbon Dioxide 30 mmol/L (22-29); Chloride 106 mmol/L (96-108); Cholesterol 168 mg/dL (<200); Estimated Glomerular Filt Rate > 60; Glucose Fasting 121 mg/dL (60-99); HDL Cholesterol 55 mg/dL (>40); LDL Cholesterol Calculated 90 mg/dL (<100); Potassium 4.3 mmol/L (3.3-5.1); Sodium 142 mmol/L (135-145); Total Protein 7.2 g/dL (6.5-8.0); Triglycerides 116 mg/dL (<150)
[2024-10-06 11:43] LABS: TSH reflex Free T4 1.74 uIU/mL (0.32-4.0)
== END 2024-10-06 07:58 | disposition home or self-care (01) ==
LOC: HO.10HDL 07:57
PROVIDERS: Visit Provider Nurse Practitioner Family
DX: Z00.00 Encounter for general adult medical examination without abnormal findings (principal); Z13.6 Encounter for screening for cardiovascular disorders
CPT/HCPCS: 36415; 80053; 80061; 81003; 84443; 85025

== ENCOUNTER 2024-10-12 08:00 | Outpatient (AMB) | payer BC, SELFPAY ==
[2024-10-12 08:05] VITALS: BP 122/82; PULSE 94; O2SAT 97; BMI 43.0
--- NOTE | 2024-10-12 08:05 | A.OFFPC_ITS ---
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 History of Present Illness The patient is a 44-year-old female presenting for a follow-up regarding her weight management and elevated fasting blood sugar levels. She reports attending several parties in the past month, which led to some weight fluctuation. Initially, at the beginning of July, her weight was recorded at 245 pounds. She has since managed to reduce it to 235 pounds as of this visit, although she had reached as low as 229 pounds during the period (on phentermine 30mg). The patient notes that dietary constraints are challenging but acknowledges reduced hunger as a positive outcome. She recently reviewed her bloodwork and noted several flagged values. Specifically, her fasting blood sugar was elevated, although she was fasting prior to the test following a meal at 5:00 PM the previous day and testing the following morning at 8:00 AM. She is not currently diagnosed with diabetes, but there is a concern for prediabetes with emphasis on dietary modifications. Additionally, the patient underwent a mammogram, which required a callback. Further investigations attributed this to the presence of fatty tissue. The patient also reports persistent cold symptoms following travel to [place] in late August that have re-emerged after briefly resolving. Social History - Reports participation in social events involving food consumption. - Works in an environment that involves communal snacks. - Describes an interest in maintaining d ietary changes and weight loss efforts. - No current tobacco use. Former smoker with distant history. - Recently traveled to [place]. Health Maintenance - Routine mammogram conducted with maldonado ngs of fatty tissue. - Discussed the importance of portion co ntrol and healthier food choices for blood sugar management. - Counseling on the management of predia betes through dietary changes. Review of Systems - Respiratory: Reports persistent cold s ymptoms, recurrent post-travel. - Endocrine: Denies current diabetes; ra ised concern about prediabetes due to recent bloodwork. - Gastrointestinal: Denies abnormal hung er, reports improved appetite regulation. - Breast: Reports history of mammogram w ith fatty tissue findings, required further assessment. Physical Exam General: Cooperative, healthy appearing, comfortable, no acute distress and well developed, obese Orientation: Patient oriented x3 Limitations: No limitations Head: Normal to inspection Ears: Hearing grossly normal bilaterally Nose: Normal external nose present Face and sinus: Normal facial exam Eyes: Appearance normal, both eyes and all related structures Neck: Normal visual inspection and Yes full ROM Respiratory: Clear to auscultation bilaterally Cardiovascular: Regular rate and rhythm. Normal S1 and S2 GI: Normal to inspection. Soft to palpation and nontender Skin: No rashes or lesions noted Neuro: Patient oriented x3 Extremities: Normal to inspection Results - Labs: Elevated fasting blood sugar, sl ight elevation in CO2 noted as clinically insignificant. - Imaging: Mammogram indicated fatty samantha ast tissue; required a recall but results deemed typical and non-concerning. Plan - Continue monitoring weight, encouragin g dietary adjustments to manage obesity and prevent diabetes progression. - Suggest re-evaluation of blood sugar l evels with consistent fasting protocol to ensure accuracy. - Encourage adherence to scheduled healt h screenings, addressing the benign mammogram findings. - Monitor respiratory symptoms and manag e conservatively, recommending cold symptom relief. - Ensure follow-up for significant weigh t management progress, adjusting interventions as necessary. Patient was informed and verbally consented to the use of an ambient scribe for clinic note documentation during this visit. Discussion Notes I discussed with the patient her current weight management approach and the importance of maintaining a balanced diet to prevent the progression to diabetes. We reviewed her recent lab work, particularly addressing the elevated fasting blood sugar. The patient was advised on the significance of proper dieting and portion control in acclimating her body to healthier eating patterns, reducing the craving for high sugar foods. Regarding the mammogram, I reassured her about the findings and explained the usual nature of fatty tissue in radiographic imaging. Patient Instructions - Continue with current weight loss plan , emphasizing healthier food choices and portion control. - Monitor symptoms of illness; use over- the-counter remedies for cold symptoms. - Maintain scheduled health screenings a nd notify the clinic of any changes in health status. - Plan to return for a follow-up appoint ment in six months to evaluate progress and adjust the management plan as needed. [facility] Medical History Sleep apnea in adult Sleep apnea CPAP (continuous positive airway pressure) dependence Surgical History Hx of hysterectomy Family History Maternal Aunt Colon cancer Social History Housing: House Patient Tobacco Use Status: Current everyday Tobacco user Cigarettes Per Day: 5 e-Cigarette/Vaping Use: Never Used Second Hand Smoke Exposure: No service: No Current occupational status: employed Current occupation: [employer] Current occupational exposures/hazards: No Cognitive needs: No Hearing needs: No Vision needs: No Female Reproductive History Menstrual Age of Menarche: 9 Questionnaire Thrive Questionnaire Date Thrive assessed: 07/27/24 Do you have trouble paying for medicines?: No Do you have trouble getting transportation to medical appointments?: No Do you have trouble paying your heating and electricity bill?: No Do you have trouble taking care of your child, family member or friend?: I choose not to answer this question Do you have trouble with day-to-day activities such as bathing, preparing meals, shopping, managing finances, etc.?: I choose not to answer this question Are you currently unemployed and looking for a job?: I choose not to answer this question Are you interested in more education?: I choose not to answer this question Please select the resources that you would like help with: Transportation and None Currently or been in a relationship where the following occur: I choose not to answer THRIVE Score: 0 AUDIT C Alcohol Use Questionnaire (AUDIT-C) 1. How often do you have a drink containing alcohol?: 2-4 times a month 2. How many drinks containing alcohol do you have on a typical day when you are drinking?: 1 or 2 3. How often do you have six or more drinks on one occasion?: Monthly Total Score: 4 Score Reviewed/Action Taken: Yes GEORGES-7 AMB Questionnaire GEORGES-7 Date GEORGES - 7 assessed: 10/12/24 Feeling nervous, anxious, or on edge: 0 = Not at all Not being able to stop or control worryin = Not at all Worrying too much about different things: 0 = Not at all Trouble relaxin = Not at all Being so restless that it is hard to sit still: 0 = Not at all Becoming easily annoyed or irritable: 0 = Not at all Feeling afraid as if something awful might happen: 0 = Not at all Total GEORGES-7 score (0-4 normal; 5-9 mild; 10-14 moderate; 15-21 severe): 0 Source: Developed by Drs. Ang Haley, Lis Pichardo, Dylan Ibarra and colleagues, with an educational yadira from [employer]. GEORGES-7 Assessment Billing GEORGES-7 Assessment Tool: GEORGES-7 Assessment 82549 Physical exam (Primary Care) Vital Signs: Last Vital Signs Pulse 94 10/12/24 08:05 BP 122/82 10/12/24 08:05 Pulse Ox 97 10/12/24 08:05 Oxygen Delivery Method Room Air 10/12/24 08:05 BMI result Body Mass Index 43.0 Tobacco/Smoking Status: Tobacco use Status Tobacco use date assessed 07/27/24 10/12/24 08:11 Patient Tobacco Use Status Current everyday Tobacco 10/12/24 08:11 e-Cigarette/Vaping Use Never Used 10/12/24 08:11 Thrive Assessment: Date of Thrive Assessment Date Thrive assessed 07/27/24 10/12/24 08:11 Currently or been in a relationship where the following occur: I choose not to answer Coding Level of Care Code Est Pt Level 3 (58253) Diagnoses Prediabetes R73.03 Morbid obesity E66.01 Additional Codes GEORGES-7 Assessment Billing - GEORGES-7 Assessment Tool: GEORGES-7 Assessment 16868 ([id number]) Assessment & Plan Assessment & Plan (1) Prediabetes: Code(s): R73.03 - Prediabetes Category: Medical (2) Morbid obesity: Code(s): E66.01 - Morbid (severe) obesity due to excess calories Category: Medical Plan . Patient Instructions: .
== END 2024-10-12 08:45 | disposition home or self-care (01) ==
PROVIDERS: PCP Nurse Practitioner Family; Visit Provider Nurse Practitioner Family
DX: R73.03 Prediabetes (principal); E66.01 Morbid (severe) obesity due to excess calories; Z68.41 Body mass index [BMI] 40.0-44.9, adult

== ENCOUNTER → 2024-10-12 08:00 | Outpatient (BNVA) | payer BC, SELFPAY | PROVIDERS: PCP Nurse Practitioner Family; Visit Provider Nurse Practitioner Family | DX: R73.03 Prediabetes (principal); E66.01 Morbid (severe) obesity due to excess calories; Z68.41 Body mass index [BMI] 40.0-44.9, adult | CPT/HCPCS: 96127 ==

== ENCOUNTER 2024-12-10 07:31 | Day surgery (SDC) | payer BC, SELFPAY ==
--- NOTE | 2024-12-09 09:28 | HO.ANESPROP2 ---
Documented by User: Bing Pena NP 12/09/24 09:29 HPI - Anesthesia Eval Consult details Narrative: 44yo F for Colonoscopy PMFSH Active Problems Active Problems: All Active Problems Morbid obesity (Acute) Obesity (Acute) Prediabetes (Acute) Family history of abdominal aortic aneurysm (AAA) (Acute) Elevated fasting blood sugar (Acute) Elevated liver enzymes (Acute) Screening for colon cancer (Acute) History of candidiasis of vagina (Acute) Hx of hysterectomy (Acute) Hx of abnormal cervical Pap smear (Acute) Obesity, morbid, BMI 40.0-49.9 (Acute) Sleep apnea in adult (Acute) Missed periods (Acute) Vitamin D deficiency (Acute) Physical exam (Acute) Past Medical History Medical History Restless leg syndrome Elevated cholesterol Sleep apnea in adult Sleep apnea CPAP (continuous positive airway pressure) dependence Family History Family History Maternal Aunt Colon cancer Surgical History Surgical History Hx of hysterectomy Social History Social History Housing: House Patient Tobacco Use Status: Former Tobacco user Cigarettes Per Day: 5 e-Cigarette/Vaping Use: Never Used Second Hand Smoke Exposure: No Use of substances other than those prescribed or required for medical reasons: No Are you DNR?: No Advance Directives: No Advance Directives Information Provided: Yes service: No Current occupational status: employed Current occupation: [employer] Current occupational exposures/hazards: No Cognitive needs: No Hearing needs: No Vision needs: No Meds Allergies Allergy/AdvReac Type Severity Reaction Status Date / Time Sulfa (Sulfonamide Allergy Unknown facial Verified 10/12/24 08:06 Antibiotics) edema oxycodone [OXYCODONE] AdvReac Intermediate VOMITTING Verified 10/12/24 08:06 Assessment and Plan Assessment Anesthesia Assessment: Chart Reviewed Documented by User: Chata Miller MD 12/10/24 10:28 PMFSH Active Problems Active Problems: All Active Problems Morbid obesity (Acute) Obesity (Acute) Prediabetes (Acute) Family history of abdominal aortic aneurysm (AAA) (Acute) Elevated fasting blood sugar (Acute) Elevated liver enzymes (Acute) Screening for colon cancer (Acute) History of candidiasis of vagina (Acute) Hx of hysterectomy (Acute) Hx of abnormal cervical Pap smear (Acute) Obesity, morbid, BMI 40.0-49.9 (Acute) MATTY. Uses CPAP machine Missed periods (Acute) Vitamin D deficiency (Acute) Physical exam (Acute) H/o Cough/ cold- patient states resolved. Patient looks a little flushed abd is coughing slightly/ clearing throat but states tickle in throat due to dry air. No recent cold. No fever Past Medical History Medical History Restless leg syndrome Elevated cholesterol Sleep apnea in adult Sleep apnea CPAP (continuous positive airway pressure) dependence Family History Family History Maternal Aunt Colon cancer Family history of problems with anesthesia: No Surgical History Surgical History Hx of hysterectomy History of Problems with Anesthesia: No Social History Social History Housing: House Patient Tobacco Use Status: Former Tobacco user Cigarettes Per Day: 5 e-Cigarette/Vaping Use: Never Used Second Hand Smoke Exposure: No Use of substances other than those prescribed or required for medical reasons: No Are you DNR?: No Advance Directives: No Advance Directives Information Provided: Yes service: No Current occupational status: employed Current occupation: [employer] Current occupational exposures/hazards: No Cognitive needs: No Hearing needs: No Vision needs: No Meds Allergies Allergy/AdvReac Type Severity Reaction Status Date / Time Sulfa (Sulfonamide Allergy Unknown facial Verified 10/12/24 08:06 Antibiotics) edema oxycodone [OXYCODONE] AdvReac Intermediate VOMITTING Verified 10/12/24 08:06 Exam Height,Weight and Vital Signs: Height 5 ft 3 in Weight 103.7 kg Vital Signs Temp Pulse Resp BP Pulse Ox O2 Del Method 12/10/24 08:18 98.1 F 89 20 146/96 H 98 Room Air Airway Mallampati Class: II TM Dist: >3cm Neck ROM: Full Loose/Missing/Broken Teeth: Yes (Missing molars. Denies broken or loose teeth) Heart: RRR Lungs: CTAB Assessment and Plan Assessment Anesthesia Assessment: Anesthesia Plan Discussed and Chart Reviewed Final Anesthetic Review Family History of Problems with Anesthesia: No History of Problems with Anesthesia: No NPO: Yes ASA Class: III Final Preanesthetic Review: No Changes in Pt Med Stat, Meds/Allgs Chart Reviewed, Consent Obtained/Reviewed and Anes Risks/Benef Reviewed Patient Risk: Intermediate Procedure Risk: Low Assessment/Block/Sedation in SS: Assess/Block/Sedation-SS Anesthetic Plan Anesthetic Plan: TIVA Disposition: Standard PACU
[2024-12-10 08:10] VITALS: BMI 40.5
[2024-12-10 08:18] VITALS: BP 146/96; PULSE 89; RESP 20; TEMP 36.7; O2SAT 98
[2024-12-10] MEDS: Lactated Ringers 1,000 ML 100 ML IVCONT (09:17)
--- NOTE | 2024-12-10 09:38 | MHC.SHP ---
Pre-Procedural Eval Section A - 24 Hr Update-Section A only Date of Service: 12/10/24 The patient is an INPATIENT: No The patient has been examined within 24 hours of the surgical procedure. The History & Physical has been completed within 30 days and I have reviewed it.: No Section B - Complete if H&P > 30 days Chief Complaint: screening Relevant Family History (Specify if Yes): Yes Relevant Social History: Tobacco Use Present Medications: see Short Stay Collaborative assessment Medical History: Significant History (Sleep apnea CPAP (continuous positive airway pressure) dependence) History of Previous Operations: Relevant previous surgery/procedure and date(s) (History of hysterectomy) Allergies: Allergies Allergy/AdvReac Type Severity Reaction Status Date / Time Sulfa (Sulfonamide Allergy Unknown facial Verified 10/12/24 08:06 Antibiotics) edema oxycodone [OXYCODONE] AdvReac Intermediate VOMITTING Verified 10/12/24 08:06 Review of Systems Sugical H&P ROS: Negative: Constitution, Cardiovascular, Respiratory and Gastrointestinal Exam Surgical H&P Exam: Normal: Heart, Normal: Lungs, Normal: Extremities and Normal: Abdomen Plan Diagnosis/Plan: Unchanged I have reviewed the history and physical and performed a pertinent physical examination on my patient. No changes have occurred unless specified. Time Spent With Patient Time: Total time managing care of this patient today ____ minutes.
--- NOTE | 2024-12-10 10:39 | P.OPN-COLO_ITS ---
Colonoscopy Operative Note Operative Note Date of Service: 12/10/24 Narrative: COLONOSCOPY TILL CECUM Pre-op diagnosis: Colon cancer screening (First colon), FH of colon cancer (maternal great aunt in her 80's). Post-op diagnosis:? Diverticulosis, hemorrhoids Endoscopist:? Chichi Bro MD Anesthesia:?MAC Consent: Indications for the procedure and potential complications of bleeding, perforation, reaction to medications and missed diagnosis were discussed with the patient and informed consent was obtained. Instrument: Olympus PCF H 190 L variable stiffness pediatric colonoscope Monitoring: Vital signs and clinical assessment, intermittent blood pressure monitoring, continuous EKG monitoring, Pulse oximetry and Carbon Dioxide monitoring were done throughout the procedure. Please see anesthesia flowsheet. Colon withdrawl time was 16 minutes. Procedure: The patient was placed in the left lateral decubitis position and pre-procedure medications were administered. After a digital rectal examination of the ano-rectum, the video colonoscope was inserted into the rectum and advanced through the colon to the cecum. The colonoscope was slowly withdrawn in a retrograde panoramic fashion and the colon mucosa was carefully examined including a retroflexed view of the rectum. Findings and interventions are described below. Procedure Difficulty: LLQ pressure was applied to intubate the cecum Findings: Terminal Ileum: Not evaluated Cecum: Normal Ascending Colon: Normal Transverse Colon: Normal Descending Colon: Moderate diverticulosis Sigmoid Colon: Moderate diverticulosis Rectum: Normal Ano-rectum: Moderate internal hemorrhoids Colon preparation: Good after copious irrigation. [place] Bowel Preparation Scale Right colon; 2 Transverse colon: 2 Left colon; 2 (0 = Unprepared colon segment with mucosa not seen due to solid stool that cannot be cleared. 1 = Portion of mucosa of the colon segment seen, but other areas of the colon segment not well seen due to staining, residual stool and/or opaque liquid. 2 = Minor amount of residual staining, small fragments of stool and/or opaque liquid, but mucosa of colon segment seen well. 3 = Entire mucosa of colon segment seen well with no residual staining, small fragments of stool or opaque liquid) Impression and Post Procedure Diagnosis: Colonoscopy Findings: No polyps were detected Moderate diverticulosis seen in the left colon Moderate hemorrhoids on retroflexed exam. Plan: Repeat Colonoscopy in 10 years (earlier if she has any lower GI symptoms). (Dulcolax 10 mg daily x starting 3 days before colonoscopy in addition to Miralax prep and adult colonoscope for future colonoscopy) Above findings were reviewed with the patient and relevant handouts were given and the discharge area. Patient was placed on the colonoscopy recall list for repeat colonoscopy in 10 years.
[2024-12-10 10:45] VITALS: BP 118/72; PULSE 89; RESP 20; TEMP 36.9; O2SAT 99
[2024-12-10 11:00] VITALS: BP 132/81; PULSE 68; RESP 20; TEMP 36.9; O2SAT 98
== END 2024-12-10 11:29 | disposition home or self-care (01) ==
PROVIDERS: PCP Nurse Practitioner Family; Visit Provider Internal Medicine Gastroenterology
PROC: 0DJD8ZZ Inspection of Lower Intestinal Tract, Via Natural or Artificial Opening Endoscopic (ICD-10-PCS; CPT 45378; principal; 2024-12-10 09:30)
DX: Z12.11 Encounter for screening for malignant neoplasm of colon (principal); K57.30 Diverticulosis of large intestine without perforation or abscess without bleeding; K64.8 Other hemorrhoids; E78.00 Pure hypercholesterolemia, unspecified; G47.33 Obstructive sleep apnea (adult) (pediatric); Z99.89 Dependence on other enabling machines and devices; Z88.2 Allergy status to sulfonamides; Z88.5 Allergy status to narcotic agent; Z79.899 Other long term (current) drug therapy; F17.210 Nicotine dependence, cigarettes, uncomplicated
CPT/HCPCS: 45378; J1596; J2704; J3010

== ENCOUNTER → 2024-12-10 07:31 | Outpatient (BNV) | payer BC, SELFPAY | PROVIDERS: PCP Nurse Practitioner Family; Visit Provider Internal Medicine Gastroenterology | DX: Z12.11 Encounter for screening for malignant neoplasm of colon (principal); Z80.0 Family history of malignant neoplasm of digestive organs; K57.90 Diverticulosis of intestine, part unspecified, without perforation or abscess without bleeding; K64.8 Other hemorrhoids | CPT/HCPCS: 45378 ==

== ENCOUNTER 2025-03-30 10:53 | Outpatient (REF) | payer BC, SELFPAY ==
--- NOTE | ~2025-03-30 | MM_ITS ---
EXAMINATION: MM DIAGNOSTIC DIGITAL BREAST TOMOSYNTHESIS, BILATERAL CLINICAL INFORMATION: 6 month follow-up for bilateral asymmetries on cc views without sonographic correlates. COMPARISON: Mammography: Comparison is made with relevant prior exams. TECHNIQUE: Digital breast mammography with tomosynthesis is performed in both the craniocaudal and mediolateral oblique views along with computer-aided detection (CAD). FINDINGS: There are scattered areas of fibroglandular density (ACR BI-RADS breast composition Category b). Right: Asymmetry in the medial breast on CC view anterior to middle depth is not significantly changed from prior. No prior sonographic correlate was seen. No suspicious calcifications or other abnormal findings. Left: Asymmetry lateral breast posterior depth on CC view is not significantly changed to slightly decreased from prior. No prior sonogram for correlate was seen. No suspicious calcifications or other abnormal findings. Results are provided to the patient at time of visit by the technologist. MM/MM tomosynthesis diagnostic BI IMPRESSION: Asymmetry left breast lateral posterior depth on CC view and asymmetry medial right breast anterior to middle depth on CC view without prior sonographic correlate are not significantly changed from prior. Recommend 6 month follow-up for further evaluation of stability. ASSESSMENT: BI-RADS BI-RADS 3 - Probably benign finding(s) - 6 month follow-up suggested RECOMMENDATION: 6 Month F/U This patient's information was entered into a reminder system with a target due date for their next mammogram. Electronically signed by: Tari Ying DO 03/30/2025 01:52 PM EDT Workstation: [id number]
--- OUTSIDE RECORDS SUMMARY | 2025-03-30 11:50 | XMS_ITS | Patient Health Record ---
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 Name Role Phone Victor Manuel Ralph MD Primary Care Provider Geovanny De Leon Unavailable [phone] Reason For Referral No Information Medications Medication SIG (Take, Route, Fr equency, Duration) Notes Start Date End Date Status Fluorouracil 5 % 1 application to aff ected area Externally Twice a day for 30 days 09/06/2014 Active Problems Problem Type SNOMED Code ICD Code Onset Dates Problem Status W/U Status Risk Notes Problem Calcaneal spur (32913811) Calcaneal spur (726.73) Active confirmed Problem Pain in limb (53624382) Pain in Limb (729.5) Active confirmed Problem Plantar fasciitis (441273846) Plantar Fasciitis (728.71) Active confirmed Unchanged Problem Verruca plantaris (79732553) Verruca Plantaris (078.19) Active confirmed Plan Of Treatment Pending Test Test Name Order Date [id number] Destruction, -09/27/2014 [id number] Destruction, 11-0910/14/2014 Insurance Providers Payer Name Payer Address Payer Phone Subscriber Number Group Number Insured Name Patient Relationship to Insured Coverage Start Date Coverage End Date [facility] [address] [place] [address] [id number] Gunnar Tang Spouse - patient is the spouse of the insured Medical (General) History Medical History History ICD Code Warts Chicken pox Joint implants/screws Surgical History Surgery Date(Month/Year) fx collar bone 1998
== END 2025-03-30 10:54 | disposition home or self-care (01) ==
LOC: HO.MAMMO 10:53
PROVIDERS: PCP Nurse Practitioner Family; Visit Provider Nurse Practitioner Family
DX: N64.89 Other specified disorders of breast (principal)
CPT/HCPCS: 77062; 77066

== ENCOUNTER → 2025-03-30 11:00 | Outpatient (BNV) | payer BC, SELFPAY | PROVIDERS: PCP Nurse Practitioner Family; Visit Provider Internal Medicine | DX: R92.313 Mammographic fatty tissue density, bilateral breasts (principal) | CPT/HCPCS: 77062; 77066 ==

== ENCOUNTER 2025-04-12 09:39 | Outpatient (REF) | payer BC, SELFPAY ==
--- OUTSIDE RECORDS SUMMARY | 2025-04-12 10:37 | XMS_ITS | Patient Health Record ---
[facility] Organization [facility] Address [address] [facility] [place] [address] Care Team Providers Care Warehouse Shift Supervisor Name Role Phone Victor Manuel Ralph MD Primary Care Provider Geovanny De Leon Unavailable [phone] Reason For Referral No Information Medications Medication SIG (Take, Route, Fr equency, Duration) Notes Start Date End Date Status Fluorouracil 5 % 1 application to aff ected area Externally Twice a day for 30 days 09/06/2014 Active Problems Problem Type SNOMED Code ICD Code Onset Dates Problem Status W/U Status Risk Notes Problem Calcaneal spur (25145590) Calcaneal spur (726.73) Active confirmed Problem Pain in limb (45247638) Pain in Limb (729.5) Active confirmed Problem Plantar fasciitis (047754651) Plantar Fasciitis (728.71) Active confirmed Unchanged Problem Verruca plantaris (42695318) Verruca Plantaris (078.19) Active confirmed Plan Of Treatment Pending Test Test Name Order Date [id number] Destruction, -09/27/2014 [id number] Destruction, 11-0910/14/2014 Insurance Providers Payer Name Payer Address Payer Phone Subscriber Number Group Number Insured Name Patient Relationship to Insured Coverage Start Date Coverage End Date [facility] [address] [place] [address] [id number] Gunnar Tang Spouse - patient is the spouse of the insured Medical (General) History Medical History History ICD Code Warts Chicken pox Joint implants/screws Surgical History Surgery Date(Month/Year) fx collar bone 1998
[2025-04-12 13:12] LABS: MANUAL DIFF FLAG NO
[2025-04-12 13:15] LABS: Basophils Percent Auto 0.3 % (0-2); Eosinophils Absolute Auto 0.1 X10*3/uL (0.0-0.4); Eosinophils Percent Auto 2.2 % (0-4); Hematocrit 37.4 % (37.0-47.0); Hemoglobin 12.9 g/dl (12.0-16.0); Imm Gran Abs Auto 0.01 X10*3/uL (0.00-0.03); Imm Gran Pct Auto 0.2 % (0.0-0.4); Lymphocytes Absolute Auto 2.9 X10*3/uL (1.2-4.9); Lymphocytes Percent Auto 50.2 % (20-40); Mean Corpuscular HGB Conc 34.5 g/dl (31.0-35.0); Mean Corpuscular Hemoglobin 30.1 pg (27.0-33.0); Mean Corpuscular Volume 87.2 fL (80.0-98.0); Mean Platelet Volume 10.6 fL (9.4-12.3); Monocytes Absolute Auto 0.3 X10*3/uL (0.1-1.2); Monocytes Percent Auto 5.9 % (2-11); Neutrophils Absolute Auto 2.4 x10*3/uL (2.0-8.3); Neutrophils Percent Auto 41.2 % (45-73); Platelet Count 253 X10*3/uL (160-400); Red Blood Count 4.29 X10*6/uL (4.20-5.50); Red Cell Distribution Width 12.7 % (11.0-16.0); White Blood Count 5.8 X10*3/uL (4.8-10.8)
[2025-04-12 13:16] LABS: Appearance Urine Clear; Color Urine Yellow; Glucose Urine UA Negative (Negative); Leukocyte Esterase Urine Negative (Negative); Nitrite Urine Negative (Negative); Urine Blood Negative (Negative); Urine Ketones Negative (Negative); Urine Protein Negative (Neg-Trace)
[2025-04-12 13:43] LABS: Alanine Aminotransferase 38 U/L (0-31); Albumin Level 4.6 g/dL (3.5-5.0); Alkaline Phosphatase 71 U/L (39-117); Anion Gap 12 (12-20); Aspartate Amino Transferase 26 U/L (5-31); Bilirubin Total 0.9 mg/dL (0.0-1.0); Blood Urea Nitrogen 14 mg/dL (9-16); Calcium 9.9 mg/dL (8.4-10.2); Carbon Dioxide 28 mmol/L (22-29); Chloride 106 mmol/L (96-108); Cholesterol 199 mg/dL (<200); Estimated Glomerular Filt Rate > 60; Glucose Fasting 111 mg/dL (60-99); HDL Cholesterol 55 mg/dL (>40); LDL Cholesterol Calculated 109 mg/dL (<100); Potassium 4.2 mmol/L (3.3-5.1); Sodium 142 mmol/L (135-145); Total Protein 6.9 g/dL (6.5-8.0); Triglycerides 178 mg/dL (<150)
[2025-04-12 13:53] LABS: TSH reflex Free T4 1.74 uIU/mL (0.32-4.0); Vitamin D 25-OH Total 40.8 ng/mL (>30)
== END 2025-04-12 09:40 | disposition home or self-care (01) ==
LOC: HO.10HDL 09:39
PROVIDERS: Visit Provider Nurse Practitioner Family
DX: Z00.00 Encounter for general adult medical examination without abnormal findings (principal); E55.9 Vitamin D deficiency, unspecified
CPT/HCPCS: 36415; 80053; 80061; 81003; 82306; 84443; 85025

== ENCOUNTER 2025-04-13 10:02 | Outpatient (AMB) | payer BC, SELFPAY ==
[2025-04-13 10:05] VITALS: BP 120/72; PULSE 76; O2SAT 97; BMI 39.7
--- NOTE | 2025-04-13 10:05 | MHC.PC.OV ---
Vital Signs 04/13/25 10:05 Height 5 ft 3 in Weight 224 lb BMI 39.7 BP 120/72 Blood Pressure Location Lt brachial Position Sitting Pulse 76 Pulse Source Pulse Oximeter Pulse Oximetry (%) 97 Oxygen Delivery Method Room Air Intake Visit Reasons: 6 months follow up Manager Route Required: No Accompanied by: Self / Same As Patient Allergies Sulfa (Sulfonamide Antibiotics) Allergy (Unknown, Verified 04/13/25 10:36) facial edema oxycodone (OXYCODONE) Adverse Reaction (Intermediate, Verified 04/13/25 10:36) VOMITTING Medication List - Last Reconciled 04/13/25 by Mook Morel [facility] ezetimibe 10 mg PO DAILY phentermine 30 mg PO DAILY ropinirole 0.25 mg PO BEDTIME 90 days Tobacco use date assessed: 04/13/25 Dental Screening Dental Screen Date: 04/13/25 Did you have a dental visit in the last 12 months?: Yes Did you have a dental problem in the last 6 months where you did not have access to dental care?: No Was dental information given to patient?: Patient has dentist HPI 6 months follow up HPI Details Chief Complaint The patient presents with concerns related to sleep apnea and restless legs syndrome. History of Present Illness The patient is a 45-year-old female presenting with sleep apnea and restless legs syndrome. She was previously on a statin, which exacerbated her restless legs syndrome, causing increased leg pain. As a result, the statin was discontinued, and she was started on ezetimibe. The patient has a history of restless legs syndrome, for which she is on a low dose of ropinirole. Her symptoms have worsened, prompting further evaluation, including a ferritin level, which has not been recently checked. The patient is also morbidly obese, but she has experienced a weight loss of 4 pounds with the use of phentermine. She denies any side effects from phentermine, including chest pain or shortness of breath. The dosage of phentermine is being increased to 37.5 mg. Social History Health Maintenance Review of Systems - Neurological: Reports restless legs syndrome. Denies headaches. - Cardiovascular: Denies chest pain, denies shortness of breath. - General: Denies fever, denies chills. Physical Exam General: Cooperative, healthy appearing, comfortable, no acute distress and well developed Orientation: Patient oriented x3 Limitations: No limitations Head: Normal to inspection Ears: Hearing grossly normal bilaterally Nose: Normal external nose present Face and sinus: Normal facial exam Eyes: Appearance normal, both eyes and all related structures Neck: Normal visual inspection and Yes full ROM Respiratory: Normal respiratory effort and able to speak in complete sentences. Clear to auscultation bilaterally Cardiovascular: Regular rate and rhythm. Normal S1 and S2 GI: Normal to inspection. Soft to palpation and nontender Skin: No rashes or lesions noted Neuro: Patient oriented x3 Extremities: Normal to inspection, but patient reports restless legs and more pains in her legs. Results Plan The patient will discontinue the statin due to exacerbation of restless legs syndrome and will start on ezetimibe as an alternative. A ferritin level will be drawn to assess for any deficiencies contributing to her restless legs syndrome. The dosage of phentermine will be increased to 37.5 mg to aid in weight loss, as the patient has tolerated the medication well without side effects. Discussion Notes I discussed with the patient the plan to discontinue the statin due to its adverse effects on her restless legs syndrome/cramping and to initiate ezetimibe as an alternative. We also talked about the importance of checking her ferritin levels to rule out any deficiencies that might be worsening her symptoms. The patient was informed about the increase in phentermine dosage to 37.5 mg to support her weight loss efforts, given her positive response and lack of side effects. Patient Instructions - Stop taking the statin medication. - Start taking ezetimibe as prescribed. - Get a ferritin blood test done as soon as possible. - Continue taking phentermine and report any side effects. [facility] Medical History Restless leg syndrome Elevated cholesterol Sleep apnea in adult Sleep apnea CPAP (continuous positive airway pressure) dependence Surgical History History of colonoscopy (~12/10/24) Hx of hysterectomy Family History Maternal Aunt Colon cancer Social History Housing: House Patient Tobacco Use Status: Former Tobacco user Cigarettes Per Day: 5 e-Cigarette/Vaping Use: Never Used Second Hand Smoke Exposure: No service: No Current occupational status: employed Current occupation: [employer] Current occupational exposures/hazards: No Cognitive needs: No Hearing needs: No Vision needs: No Female Reproductive History Menstrual Age of Menarche: 9 Questionnaire PHQ-9 Over the last 2 weeks, how often have you been bothered by any of the following problems? 1. Little interest or pleasure in doing things: not at all 2. Feeling down, depressed, or hopeless: not at all 3. Trouble falling or staying asleep, or sleeping too much: not at all 4. Feeling tired or having little energy: not at all 5. Poor appetite or overeating: not at all 6. Feeling bad about yourself - or that you are a failure or have let yourself or your family down: not at all 7. Trouble concentrating on things, such as reading the newspaper or watching television: not at all 8. Moving or speaking so slowly that other people could have noticed. Or the opposite - being so fidgety or restless that you have been moving around a lot more than usual: not at all 9. Thoughts that you would be better off or of hurting yourself in some way: not at all Total score: 0 Depression Screening Interpretation: Negative Depression Screening Done: Yes 81780 - PHQ-9 Billing: Yes Source: Developed by Drs. Ang Haley, Lis Pichardo, Dylan Ibarra and colleagues, with an educational yadira from [employer]. Thrive Questionnaire Date Thrive assessed: 04/13/25 I am a: Patient What is your living situation today?: I choose not to answer this question Within the past 12 months, did the food you bought not last and you didn't have the money to get more?: I choose not to answer this question Within the past 12 months, did you worry whether your food would run out before you got money to buy more?: I choose not to answer this question Do you have trouble paying for medicines?: I choose not to answer this question Do you have trouble getting transportation to medical appointments?: I choose not to answer this question Do you have trouble paying your heating and electricity bill?: I choose not to answer this question Do you have trouble taking care of your child, family member or friend?: I choose not to answer this question Do you have trouble with day-to-day activities such as bathing, preparing meals, shopping, managing finances, etc.?: I choose not to answer this question Are you currently unemployed and looking for a job?: I choose not to answer this question Are you interested in more education?: I choose not to answer this question Please select the resources that you would like help with: None Currently or been in a relationship where the following occur: I choose not to answer THRIVE Score: 0 AUDIT C Alcohol Use Questionnaire (AUDIT-C) 1. How often do you have a drink containing alcohol?: Never 3. How often do you have six or more drinks on one occasion?: Never Total Score: 0 Score Reviewed/Action Taken: Yes GEORGES-7 AMB Questionnaire GEORGES-7 Date GEORGES - 7 assessed: 04/13/25 Feeling nervous, anxious, or on edge: 0 = Not at all Not being able to stop or control worryin = Not at all Worrying too much about different things: 0 = Not at all Trouble relaxin = Not at all Being so restless that it is hard to sit still: 0 = Not at all Becoming easily annoyed or irritable: 0 = Not at all Feeling afraid as if something awful might happen: 0 = Not at all Total GEORGES-7 score (0-4 normal; 5-9 mild; 10-14 moderate; 15-21 severe): 0 Source: Developed by Drs. Ang Haley, Lis Pichardo, Dylan Ibarra and colleagues, with an educational yadira from [employer]. GEORGES-7 Assessment Billing GEORGES-7 Assessment Tool: GEORGES-7 Assessment 42105 Physical exam (Primary Care) Vital Signs: Last Vital Signs Pulse 76 04/13/25 10:05 BP 120/72 04/13/25 10:05 Pulse Ox 97 04/13/25 10:05 Oxygen Delivery Method Room Air 04/13/25 10:05 BMI result Body Mass Index 39.7 Tobacco/Smoking Status: Tobacco use Status Tobacco use date assessed 04/13/25 04/13/25 10:06 Patient Tobacco Use Status Former Tobacco user 04/13/25 10:06 e-Cigarette/Vaping Use Never Used 04/13/25 10:06 PHQ-9: PHQ-9 Score PHQ-9: Total score 0 04/13/25 10:06 Depression Screening Interpretation: Negative Thrive Assessment: Date of Thrive Assessment Date Thrive assessed 04/13/25 04/13/25 10:06 Currently or been in a relationship where the following occur: I choose not to answer Coding Level of Care Code Est Pt Level 3 (95653) Complex EM visit Add On G2211 Diagnoses Restless leg syndrome G25.81 Morbid obesity E66.01 Additional Codes GEORGES-7 Assessment Billing - GEORGES-7 Assessment Tool: GEORGES-7 Assessment 01255 ([id number]) PHQ-9 - 45024 - PHQ-9 Billing: Yes ([id number]) Assessment & Plan Assessment & Plan (1) Restless leg syndrome: Code(s): G2.81 - Restless legs syndrome Category: Medical (2) Morbid obesity: Code(s): E66.01 - Morbid (severe) obesity due to excess calories Category: Medical Plan . Orders: Orders IRON PROFILE Today G25.81 - Restless legs syndrome Complete Blood Count Auto Diff Today G25.81 - Restless legs syndrome Ferritin Today G25.81 - Restless legs syndrome Comprehensive Met. Panel Today G25.81 - Restless legs syndrome Medications: New ezetimibe 10 mg PO DAILY 90 tabs 0RF Changed From ropinirole administer 1-3 hours before bedtime 0.25 mg PO BEDTIME 90 days 90 tabs 0RF To ropinirole administer 1-3 hours before bedtime 1 mg PO BEDTIME 90 tabs 0RF 90 days From phentermine must administer 2 hours after breakfast 30 mg PO DAILY 30 caps 2RF To phentermine must administer 2 hours after breakfast 37.5 mg PO DAILY 30 caps 2RF Discontinued pravastatin Discontinued Reason: Doctor's Order 20 mg PO BEDTIME 90 tabs 2RF
--- OUTSIDE RECORDS SUMMARY | 2025-04-13 11:15 | XMS_ITS | Patient Health Record ---
Author Organization [facility] Address [address] [facility] [address] Care Team Providers Care Surgical Nurse Name Role Phone Victor Manuel Ralph MD Primary Care Provider Geovanny De Leon Unavailable [phone] Reason For Referral No Information Medications Medication SIG (Take, Route, Fr equency, Duration) Notes Start Date End Date Status Fluorouracil 5 % 1 application to aff ected area Externally Twice a day for 30 days 09/06/2014 Active Problems Problem Type SNOMED Code ICD Code Onset Dates Problem Status W/U Status Risk Notes Problem Calcaneal spur (87123339) Calcaneal spur (726.73) Active confirmed Problem Pain in limb (46487329) Pain in Limb (729.5) Active confirmed Problem Plantar fasciitis (121759842) Plantar Fasciitis (728.71) Active confirmed Unchanged Problem Verruca plantaris (78496377) Verruca Plantaris (078.19) Active confirmed Plan Of Treatment Pending Test Test Name Order Date [id number] Destruction, -09/27/2014 [id number] Destruction, 11-0910/14/2014 Insurance Providers Payer Name Payer Address Payer Phone Subscriber Number Group Number Insured Name Patient Relationship to Insured Coverage Start Date Coverage End Date [facility] [address] [place] [address] [id number] Gunnar Tang Spouse - patient is the spouse of the insured Medical (General) History Medical History History ICD Code Warts Chicken pox Joint implants/screws Surgical History Surgery Date(Month/Year) fx collar bone 1998
== END 2025-04-13 10:34 | disposition home or self-care (01) ==
LOC: HO.HMCC 10:02
PROVIDERS: PCP Nurse Practitioner Family; Visit Provider Nurse Practitioner Family
DX: G25.81 Restless legs syndrome (principal); E66.01 Morbid (severe) obesity due to excess calories; Z68.39 Body mass index [BMI] 39.0-39.9, adult

== ENCOUNTER 2025-04-13 10:32 | Outpatient (REF) | payer BC, SELFPAY ==
[2025-04-13 13:23] LABS: MANUAL DIFF FLAG NO
[2025-04-13 13:28] LABS: Basophils Percent Auto 0.3 % (0-2); Eosinophils Absolute Auto 0.1 X10*3/uL (0.0-0.4); Eosinophils Percent Auto 1.8 % (0-4); Hematocrit 38.8 % (37.0-47.0); Imm Gran Abs Auto 0.01 X10*3/uL (0.00-0.03); Imm Gran Pct Auto 0.2 % (0.0-0.4); Lymphocytes Absolute Auto 2.5 X10*3/uL (1.2-4.9); Lymphocytes Percent Auto 41.8 % (20-40); Mean Corpuscular HGB Conc 33.5 g/dl (31.0-35.0); Mean Corpuscular Hemoglobin 30.1 pg (27.0-33.0); Mean Corpuscular Volume 89.8 fL (80.0-98.0); Mean Platelet Volume 11.2 fL (9.4-12.3); Monocytes Absolute Auto 0.4 X10*3/uL (0.1-1.2); Neutrophils Percent Auto 49.9 % (45-73); Platelet Count 259 X10*3/uL (160-400); Red Blood Count 4.32 X10*6/uL (4.20-5.50); Red Cell Distribution Width 12.5 % (11.0-16.0)
[2025-04-13 13:44] LABS: Alanine Aminotransferase 39 U/L (0-31); Albumin Level 4.7 g/dL (3.5-5.0); Alkaline Phosphatase 70 U/L (39-117); Anion Gap 13 (12-20); Aspartate Amino Transferase 25 U/L (5-31); Bilirubin Total 0.7 mg/dL (0.0-1.0); Blood Urea Nitrogen 14 mg/dL (9-16); Carbon Dioxide 27 mmol/L (22-29); Chloride 106 mmol/L (96-108); Estimated Glomerular Filt Rate > 60; Glucose Random 104 mg/dL (60-115); Iron 70 mcg/dL (30-160); Percent Iron Saturation 21 % (15-50); Potassium 3.9 mmol/L (3.3-5.1); Sodium 142 mmol/L (135-145); Total Iron Binding Capacity 330 mcg/dL (228-428); Total Protein 7.2 g/dL (6.5-8.0); Unsaturated Iron Binding 260 ug/dL
[2025-04-13 14:07] LABS: Ferritin 129 ng/mL (10-250)
== END 2025-04-13 10:33 | disposition home or self-care (01) ==
LOC: HO.HMGCLDS 10:32
PROVIDERS: PCP Nurse Practitioner Family; Visit Provider Nurse Practitioner Family
DX: G25.81 Restless legs syndrome (principal); E66.01 Morbid (severe) obesity due to excess calories; Z68.39 Body mass index [BMI] 39.0-39.9, adult; Z13.31 Encounter for screening for depression
CPT/HCPCS: 36415; 80053; 82728; 83540; 85025; 96127

== ENCOUNTER 2025-08-09 08:03 | Outpatient (AMB) | payer BC, SELFPAY ==
--- OUTSIDE RECORDS SUMMARY | 2022-02-27 15:53 | XMS_ITS | Encounter Summary ---
Author Organization [facility] Address [address] [place] [phone] Phone Care Team Providers Care Mushroom Spawn Maker Name Role Phone Mook Morel ANAESTHESIOLOGIST Primary Care Provider + Encounter Details Date Type Department Care Team (Late st Contact Info) Description 02/27/2022 3:53 PM EDT Hospital Encounter [facility] [address] [place] [id number] Nnii June CNP [address] [place] [address] Social History Tobacco Use Types Packs/Day Years Used Date Smoking Tobacco: Former Smokeless Tobacco: Never Education Answer Date Recorded Are you interested in more education? Not on devika e 02/22/2023 Are you concerned about learning? Not on file 02/22/2023 No 02/22/2023 No 02/22/2023 Digital Access Answer Date Recorded No 03/23/2023 No 03/23/2023 Reliable internet access at home? Not on file 03/23/2023 Device with a working camera? Not on file Comments Unknown Sex and Gender Information Value Date Recorded Sex Assigned at Not on file Legal Sex Female 2:48 PM EDT Gender Identity Not on file Sexual Orientation Not on file documented as of this encounter Plan of Treatment Not on file documented as of this encounter Procedures Procedure Name Priority Date/Time Associated Diagnosis Comments XR CHEST PA AND LATERAL 2 VIEWS Urgent/patient waiting 02/27/2022 3:58 PM EDT Cough documented in this encounter Results * XR CHEST PA AND LATERAL 2 VIEWS (02/27/2022 3:58 PM EDT) Anatomical Region Laterality Modality Chest Computed Radiogr aphy 02/27/2022 4:37 PM EDT Impressions 02/27/2022 4:38 PM EDT No acute abnormality. Narrative 02/27/2022 4:38 PM EDT XR CHEST PA AND LATERAL 2 VIEWS COMPARISON: None. FINDINGS: Devices/Tubes/Lines: None. Lungs: No focal consolidation or pulmonary edema. Pleura: No pleural effusions or pneumothorax. Heart/Mediastinum: Normal cardiomediastinal silhouette. Bones/Soft Tissues: Status post ORIF of left clavicle. Procedure Note Yaquelin Hoyos MD - 02/27/2022 XR CHEST PA AND LATERAL 2 VIEWS COMPARISON: None. FINDINGS: Devices/Tubes/Lines: None. Lungs: No focal consolidation or pulmonary edema. Pleura: No pleural effusions or pneumothorax. Heart/Mediastinum: Normal cardiomediastinal silhouette. Bones/Soft Tissues: Status post ORIF of left clavicle. IMPRESSION: No acute abnormality. Nini June JIG OPERATOR IMG XR CHEST Final Resul t documented in this encounter Visit Diagnoses Not on filedocumented in this encounter Care Teams Mushroom Spawn Maker Relationship Specialty Start Date End Date Mook Morel NP [facility] [place] [address] PCP - General Family Medicine 02/27/22 documented as of this encounter Additional Source Comments The information contained in this document represents components of the legal health record. It is not the complete legal health record.[facility]
--- NOTE | 2025-08-09 08:07 | A.OFFPC_ITS ---
Vital Signs 08/09/25 08:08 Height 5 ft 3 in Weight 221 lb BMI 39.1 BP 122/84 Blood Pressure Location Lt brachial Position Sitting Respiration 16 Pulse 75 Pulse Source Pulse Oximeter Temp 97.9 F Temp Source Oral Pulse Oximetry (%) 98 Oxygen Delivery Method Room Air Intake Visit Reasons: PE Allergies Sulfa (Sulfonamide Antibiotics) Allergy (Unknown, Verified 04/13/25 10:36) facial edema oxycodone (OXYCODONE) Adverse Reaction (Intermediate, Verified 04/13/25 10:36) VOMITTING Medication List - Last Reconciled 08/09/25 by Mook Morel, PRINTING SALES REPRESENTATIVE- ezetimibe 10 mg PO DAILY ropinirole 1 mg PO BEDTIME tirzepatide (weight loss) (Zepbound) 2.5 mg (0.5 mL) subcut QWEEK 4 weeks Tobacco use date assessed: 08/09/25 Dental Screening Dental Screen Date: 08/09/25 Did you have a dental visit in the last 12 months?: Yes Did you have a dental problem in the last 6 months where you did not have access to dental care?: No Was dental information given to patient?: Patient has dentist HPI PE HPI Details History of Present Illness The patient is a 45-year-old female presenting for a physical examination. She has a history of obesity, which was noted during the examination. She is currently on a GLP-1 agonist and has reported weight loss. The patient continues to smoke cigarettes intermittently, which is a concern for her overall health. Her preventative care is up-to-date, including gynecological exams, mammograms, and colon cancer screening. Health Maintenance - Up-to-date gynecological exam - Up-to-date mammogram - Up-to-date colon cancer screening Social History - Tobacco use: Intermittent cigarette sm oking Review of Systems denies any fevers, chills, n/v, cp, sob, abd pain, blood in stool, si or hi Physical Exam General: Cooperative, healthy appearing, comfortable, no acute distress and well developed, obese Orientation: Patient oriented x3 Limitations: No limitations Head: Normal to inspection Ears: Hearing grossly normal bilaterally Nose: Normal external nose present Face and sinus: Normal facial exam Eyes: Appearance normal, both eyes and all related structures Neck: Normal visual inspection and Yes full ROM Respiratory: Normal respiratory effort and able to speak in complete sentences. Clear to auscultation bilaterally Cardiovascular: Regular rate and rhythm. Normal S1 and S2 GI: Normal to inspection. Soft to palpation and nontender : testicles without masses/lesions and no hernias appreciated Skin: No rashes or lesions noted Neuro: Patient oriented x3 Extremities: Normal to inspection Results Plan 1. Obesity The patient is currently on a GLP-1 agonist and has reported weight loss. 2. Tobacco Use The patient continues to smoke cigarettes intermittently. 3. Preventative Care The patient's preventative care is up-to-date, including gynecological exams, mammograms, and colon cancer screening. Discussion Notes Patient Instructions - Continue current GLP-1 agonist therapy . - Schedule fasting labs in the near [facility] Medical History Fatty liver Restless leg syndrome Elevated cholesterol Sleep apnea in adult Sleep apnea CPAP (continuous positive airway pressure) dependence Surgical History History of colonoscopy (~12/10/24) Hx of hysterectomy Family History Maternal Aunt Colon cancer Social History Housing: House Patient Tobacco Use Status: Former Tobacco user Cigarettes Per Day: 5 e-Cigarette/Vaping Use: Never Used Second Hand Smoke Exposure: No service: No Current occupational status: employed Current occupation: [employer] Current occupational exposures/hazards: No Cognitive needs: No Hearing needs: No Vision needs: No Female Reproductive History Menstrual Age of Menarche: 9 Questionnaire Thrive Questionnaire Date Thrive assessed: 04/13/25 I am a: Patient What is your living situation today?: I choose not to answer this question Within the past 12 months, did the food you bought not last and you didn't have the money to get more?: I choose not to answer this question Within the past 12 months, did you worry whether your food would run out before you got money to buy more?: I choose not to answer this question Do you have trouble paying for medicines?: I choose not to answer this question Do you have trouble getting transportation to medical appointments?: I choose not to answer this question Do you have trouble paying your heating and electricity bill?: I choose not to answer this question Do you have trouble taking care of your child, family member or friend?: I choose not to answer this question Do you have trouble with day-to-day activities such as bathing, preparing meals, shopping, managing finances, etc.?: I choose not to answer this question Are you currently unemployed and looking for a job?: I choose not to answer this question Are you interested in more education?: I choose not to answer this question Please select the resources that you would like help with: None Currently or been in a relationship where the following occur: I choose not to answer THRIVE Score: 0 GEORGES-7 AMB Questionnaire GEORGES-7 Date GEORGES - 7 assessed: 04/13/25 Source: Developed by Drs. Ang Haley, Lis Pichardo, Dylan Ibarra and colleagues, with an educational yadira from [employer]. Physical exam (Primary Care) Vital Signs: Last Vital Signs Temp 97.9 F 08/09/25 08:08 Pulse 75 08/09/25 08:08 Resp 16 08/09/25 08:08 BP 122/84 08/09/25 08:08 Pulse Ox 98 08/09/25 08:08 Oxygen Delivery Method Room Air 08/09/25 08:08 BMI result Body Mass Index 39.1 Tobacco/Smoking Status: Tobacco use Status Tobacco use date assessed 08/09/25 08/09/25 08:12 Patient Tobacco Use Status Former Tobacco user 08/09/25 08:12 e-Cigarette/Vaping Use Never Used 08/09/25 08:12 Thrive Assessment: Date of Thrive Assessment Date Thrive assessed 04/13/25 08/09/25 08:12 Currently or been in a relationship where the following occur: I choose not to answer Coding Level of Care Code Est Pt Prev Care 40-64y(63684) Diagnoses Physical exam Z00.00 Vitamin D deficiency E55.9 Assessment & Plan Assessment & Plan (1) Physical exam: Code(s): Z00.00 - Encounter for general adult medical examination without abnormal findings Category: Medical (2) Vitamin D deficiency: Code(s): E55.9 - Vitamin D deficiency, unspecified Category: Medical Plan . Orders: Orders Complete Blood Count Auto Diff Today Z00.00 - Encounter for general adult medical examination without abnormal findings UA CC w/rflx Micro + Cult Today Z00.00 - Encounter for general adult medical examination without abnormal findings Lipid Panel Today Z00.00 - Encounter for general adult medical examination without abnormal findings Comprehensive [place]. Panel Fast Today Z00.00 - Encounter for general adult medical examination without abnormal findings TSH reflex Free T4 Today Z00.00 - Encounter for general adult medical examination without abnormal findings Vitamin D 25-OH Total Today E55.9 - Vitamin D deficiency, unspecified
[2025-08-09 08:08] VITALS: BP 122/84; PULSE 75; RESP 16; TEMP 36.6; O2SAT 98; BMI 39.1
--- OUTSIDE RECORDS SUMMARY | 2025-08-09 08:11 | XMS_ITS | Patient Health Record ---
Author Organization [facility] Address [address] [place] [address] Care Team Providers Care Bunk Assembler Name Role Phone Victor Manuel Ralph MD Primary Care Provider Geovanny De Leon Unavailable [phone] Reason For Referral No Information Medications Medication SIG (Take, Route, Fr equency, Duration) Notes Start Date End Date Status Fluorouracil 5 % 1 application to aff ected area Externally Twice a day; Duration: 30 days 09/06/2014 Active Problems Problem Type SNOMED Code ICD Code Onset Dates Problem Status W/U Status Risk Notes Problem Calcaneal spur (66855282) Calcaneal spur (726.73) Active confirmed Problem Pain in limb (86165732) Pain in Limb (729.5) Active confirmed Problem Plantar fasciitis (197492270) Plantar Fasciitis (728.71) Active confirmed Unchanged Problem Verruca plantaris (56444614) Verruca Plantaris (078.19) Active confirmed Plan Of Treatment Pending Test Test Name Order Date [id number] Destruction, -09/27/2014 [id number] Destruction, 11-0910/14/2014 Insurance Providers Payer Name Payer Address Payer Phone Subscriber Number Group Number Insured Name Patient Relationship to Insured Coverage Start Date Coverage End Date [facility] [address] [place] [address] [id number] Gunnar Tang Spouse - patient is the spouse of the insured Medical (General) History Medical History History ICD Code Warts Chicken pox Joint implants/screws Surgical History Surgery Date(Month/Year) fx collar bone 1998
--- OUTSIDE RECORDS SUMMARY | 2025-08-09 08:11 | XMS_ITS | Clinical Summary ---
Author Organization [facility] Address [address] [facility] [address] [place] [id number] Phone Care Team Providers Care Stone Unloader Name Role Phone Mook Morel NP Primary Care Provider + Allergies Active Allergy Reactions Criticality Noted Date Comments Sulfamethoxazole-Trimethoprim Swelling 2021 Swelling of mouth Medications atorvastatin (LIPITOR) 20 MG tablet Take 20 mg by mouth daily. 02/18/2022 Active rOPINIRole (REQUIP) 0.25 MG tablet TAKE 1 TABLET BY MOUTH ONE TO THREE HOURS BEFORE BEDTIME 02/18/2022 Active cetirizine (ZYRTEC) 10 MG tablet Take 10 mg by mouth daily. Active nicotine (NICODERM CQ) 14 mg/[address] 1 PATCH ONTO THE SKIN EVERY 24 HOURS 02/18/2023 Active Active Problems No known active problems Immunizations Immunization Administration Dates Next Due COVID-19 (Pre-08/18) Pfizer Vaccine, mRNA, PF 11/22/2021,06/05/2021,05/15/2021 Hepatitis B Adult 10/06/2017,04/04/2017,02/08/20 17 Influenza Quadrivalent Preservative Free IM 04/2023,08/07/2022,07/24/2021 Influenza Quadrivalent w/ Preservative IM 2018,07/27/2018 Social History Tobacco Use Types Packs/Day Years Used Date Smoking Tobacco: Former Smokeless Tobacco: Never Tobacco Cessation:Counseling Given: Not Answered Education Answer Date Recorded Are you interested [...] on file Sexual Orientation Not on file Last Filed Vital Signs Vital Sign Reading Time Taken Comments Blood Pressure 126/88 11/27/2023 8:10 AM EST Pulse 88 11/27/2023 8:10 AM EST Temperature 36.4 C (97.5 F) 11/27/2023 8:10 AM EST Respiratory Rate 18 11/27/2023 8:10 AM EST Oxygen Saturation 99% 11/27/2023 8:10 AM EST Inhaled Oxygen Concentration - - Weight 104.3 kg (230 lb) 04/09/2023 8:53 AM EDT Height 160 cm (5' 3 ) 04/09/2023 8:53 AM EDT Body Mass Index 40.74 04/09/2023 8:53 AM EDT Plan of Treatment Health Maintenance Due Date Last Done Comments Adult Td,Tdap Booster 1979 LIPID PANEL 1979 DEPRESSION SCREENING 1991 SMOKING Hx and SMOKELESS TOBACCO SCREENING 01/15/1992 HEPATITIS C SCREENING 1997 HIV ONE-TIME SCREENING (18-65 YEARS) 1997 PAP SMEAR 01/15/2000 SCREENING FOR DIABETES 2014 MAMMOGRAM 2019 COLOGUARD 01/15/2024 COLONOSCOPY 01/15/2024 COLORECTAL CANCER SCREENING 01/15/2024 FIT TEST 01/15/2024 FOBT 01/15/2024 SIGMOIDOSCOPY 01/15/2024 VIRTUAL COLONOSCOPY 01/15/2024 INFLUENZA VACCINE (#1) 2025 3, 08/07/2022, 07/24/2021, Additional history exists COVID-19 VACCINE ( season) 2025 09/04/2022, 11/22/2021, 06/05/2021, Additional history exists HEPATITIS A VACCINES Aged Out No long er eligible based on patient's age to complete this topic HIB VACCINES Aged Out No longer eligi ble based on patient's age to complete this topic MENINGOCOCCAL VACCINES (ACWY) Aged Out No longer eligible based on patient's age to complete this topic MENINGOCOCCAL VACCINES (B) Aged Out N o longer eligible based on patient's age to complete this topic PNEUMOCOCCAL VACCINES (0-49 years) Aged Out No longer eligible based on patient's age to complete this topic Medical Devices Not on file [place] [address] [address] [place] [address] [place] [address] [facility] [place] [address] [facility] Care Teams Stone Unloader Relationship Specialty Start Date End Date Mook Morel NP [address] [place] [id number] PCP - General Family Medicine 02/27/22 Additional Source Comments The information contained in this document represents components of the legal health record. It is not the complete legal health record.[facility]
== END 2025-08-09 08:58 | disposition home or self-care (01) ==
LOC: HO.HMCC 08:04
PROVIDERS: PCP Nurse Practitioner Family; Visit Provider Nurse Practitioner Family
DX: Z00.00 Encounter for general adult medical examination without abnormal findings (principal); E55.9 Vitamin D deficiency, unspecified

== ENCOUNTER 2025-08-25 10:04 | Outpatient (REF) | payer BC, SELFPAY ==
--- OUTSIDE RECORDS SUMMARY | 2022-02-27 15:53 | XMS_ITS | Encounter Summary ---
Author Organization [facility] Address [address] [place] [id number] Phone Care Team Providers Care Coastal Tug Mate Name Role Phone Mook Morel FUNERAL ARRANGER Primary Care Provider + Encounter Details Date Type Department Care Team (Late st Contact Info) Description 02/27/2022 3:53 PM EDT Hospital Encounter [facility] [address] [place] [id number] Nini June CNP [address] [place] [address] [email or web address] Social History Tobacco Use Types Packs/Day Years [...] clavicle. IMPRESSION: No acute abnormality. Nini June MISSILE CONTROL PILOT IMG XR CHEST Final Resul t documented in this encounter Visit Diagnoses Not on filedocumented in this encounter Care Teams Coastal Tug Mate Relationship Specialty Start Date End Date Mook Morel NP [facility] [place] [address] PCP - General Family Medicine 02/27/22 documented as of this encounter Additional Source Comments The information contained in this document represents components of the legal health record. It is not the complete legal health record.[facility]
[2025-08-25 11:19] LABS: MANUAL DIFF FLAG NO
[2025-08-25 11:30] LABS: Hematocrit 41.6 % (37.0-47.0); Hemoglobin 13.7 g/dl (12.0-16.0); Imm Gran Abs Auto 0.02 X10*3/uL (0.00-0.03); Imm Gran Pct Auto 0.3 % (0.0-0.4); Lymphocytes Absolute Auto 2.8 X10*3/uL (1.2-4.9); Mean Corpuscular HGB Conc 32.9 g/dl (31.0-35.0); Mean Corpuscular Hemoglobin 29.9 pg (27.0-33.0); Mean Corpuscular Volume 90.8 fL (80.0-98.0); NRBC Abs Auto 0.000 X10*3/uL (0.0-0.012); NRBC Pct Auto 0.0 /100WBC (0.0-0.2); Platelet Count 255 X10*3/uL (160-400); Red Blood Count 4.58 X10*6/uL (4.20-5.50); White Blood Count 6.2 X10*3/uL (4.8-10.8)
[2025-08-25 11:55] LABS: Alanine Aminotransferase 30 U/L (0-31); Albumin Level 4.6 g/dL (3.5-5.0); Alkaline Phosphatase 66 U/L (39-117); Anion Gap 10 (12-20); Aspartate Amino Transferase 22 U/L (5-31); Blood Urea Nitrogen 12 mg/dL (9-16); Calcium 9.7 mg/dL (8.4-10.2); Carbon Dioxide 29 mmol/L (22-29); Chloride 108 mmol/L (96-108); Cholesterol 207 mg/dL (<200); Estimated Glomerular Filt Rate > 60; HDL Cholesterol 61 mg/dL (>40); Potassium 4.5 mmol/L (3.3-5.1); Sodium 142 mmol/L (135-145); Total Protein 7.1 g/dL (6.5-8.0); Triglycerides 122 mg/dL (<150)
[2025-08-25 11:56] LABS: Appearance Urine Clear; Glucose Urine UA Negative (Negative); PH 5.0 (5.0-9.0); Specific Gravity - Urine 1.020 (1.005-1.025)
--- OUTSIDE RECORDS SUMMARY | 2025-08-25 12:04 | XMS_ITS | Patient Health Record ---
[facility] Address [address] [place] [address] Care Team Providers Care Drain Tiler Name Role Phone Victor Manuel Ralph MD Primary Care Provider Geovanny De Leon Unavailable [phone] Reason For Referral No Information Medications Medication SIG (Take, Route, Fr equency, Duration) Notes Start Date End Date Status Fluorouracil 5 % 1 application to aff ected area Externally Twice a day; Duration: 30 days 09/06/2014 Active Problems Problem Type SNOMED Code ICD Code Onset Dates Problem Status W/U Status Risk Notes Problem Calcaneal spur (37027983) Calcaneal spur (726.73) Active confirmed Problem Pain in limb (60551214) Pain in Limb (729.5) Active confirmed Problem Plantar fasciitis (505844875) Plantar Fasciitis (728.71) Active confirmed Unchanged Problem Verruca plantaris (39960509) Verruca Plantaris (078.19) Active confirmed Plan Of Treatment Pending Test Test Name Order Date [id number] Destruction, -09/27/2014 [id number] Destruction, 11-0910/14/2014 Insurance Providers Payer Name Payer Address Payer Phone Subscriber Number Group Number Insured Name Patient Relationship to Insured Coverage Start Date Coverage End Date [facility] [address] [place] [address] [id number] Gunnar Tang Spouse - patient is the spouse of the insured Medical (General) History Medical History History ICD Code Warts Chicken pox Joint implants/screws Surgical History Surgery Date(Month/Year) fx collar bone 1998
--- OUTSIDE RECORDS SUMMARY | 2025-08-25 12:04 | XMS_ITS | Clinical Summary ---
Author Organization [facility] Address [address] [facility] [address] [place] [phone] Phone Care Team Providers Care Capsule Maker Name Role Phone Mook Morel NP Primary [...] topic Medical Devices Not on file [place] [address] [address] [place] [address] [facility] [address] [facility] Care Teams Capsule Maker Relationship Specialty Start Date End Date Mook Morel NP [address] [place] [id number] PCP - General Family Medicine 02/27/22 Additional Source Comments The information contained in this document represents components of the legal health record. It is not the complete legal health record.[facility]
== END 2025-08-25 10:05 | disposition home or self-care (01) ==
LOC: HO.10HDL 10:04
PROVIDERS: Visit Provider Nurse Practitioner Family
DX: Z00.00 Encounter for general adult medical examination without abnormal findings (principal); Z13.6 Encounter for screening for cardiovascular disorders; Z13.29 Encounter for screening for other suspected endocrine disorder; E55.9 Vitamin D deficiency, unspecified
CPT/HCPCS: 36415; 80053; 80061; 81003; 82306; 84443; 85025

== ENCOUNTER 2025-09-30 08:30 | Outpatient (REF) | payer BC, SELFPAY ==
--- NOTE | ~2025-09-30 | MM_ITS ---
EXAMINATION: MM DIAGNOSTIC DIGITAL BREAST TOMOSYNTHESIS, BILATERAL CLINICAL INFORMATION: 1 year follow-up for bilateral asymmetries without prior sonographic correlates. COMPARISON: Mammography: Comparison is made with relevant prior exams. TECHNIQUE: Digital breast mammography with tomosynthesis is performed in both the craniocaudal and mediolateral oblique views along with computer-aided detection (CAD). FINDINGS: There are scattered areas of fibroglandular density. Left: Asymmetry lateral breast posterior depth on CC view is not significantly changed from priors. No prior signs of a correlate was seen. No suspicious calcifications or other abnormal findings. Right: Asymmetry medial breast anterior to middle depth on CC view without prior sonographic correlate is not significantly changed from priors dating back for one year. No suspicious calcifications or other abnormal findings.. Results are provided to the patient at time of visit by the technologist. MM/MM tomosynthesis diagnostic BI IMPRESSION: Bilateral asymmetries not significantly changed from prior mammograms dating back for one year. These are both without prior sonographic correlates. Recommend one-year diagnostic follow-up to demonstrate 2 years of stability. ASSESSMENT: BI-RADS Category 3: Probably benign RECOMMENDATION: 12 month diagnostic follow up This patient's information was entered into a reminder system with a target due date for their next mammogram. Electronically signed by: Tari Ying DO 09/30/2025 09:30 AM ERIKA
== END 2025-09-30 08:31 | disposition home or self-care (01) ==
LOC: HO.MAMMO 08:30
PROVIDERS: PCP Nurse Practitioner Family; Visit Provider Nurse Practitioner Family
DX: N64.89 Other specified disorders of breast (principal)
CPT/HCPCS: 77062; 77066

== ENCOUNTER → 2025-09-30 08:30 | Outpatient (BNV) | payer BC, SELFPAY | PROVIDERS: PCP Nurse Practitioner Family; Visit Provider Internal Medicine | DX: R92.8 Other abnormal and inconclusive findings on diagnostic imaging of breast (principal) | CPT/HCPCS: 77062; 77066 ==